=== PATIENT | male | born 1975 | race Caucasian/White ===

== ENCOUNTER 2023-11-15 03:08 | Observation (INO) | payer OTHER, SELFPAY ==
[2023-11-15] VITALS (23 sets, daily range): BP systolic 133–173; BP diastolic 89–120; PULSE 74–111; RESP 16–22; TEMP 36.2–36.7; O2SAT 94–99; BMI 38.0; BMI 38.2
--- NOTE | 2023-11-15 03:17 | ED_ITS ---
HPI - Chest Pain General Time Seen by Provider: 03:17 Date Seen: 11/15/23 Chief Complaint: Chest Pain Stated Complaint: chest pain radiating to left shoulder Time Seen by Provider: 11/15/23 03:18 Source: patient, RN notes reviewed and old records reviewed Mode of arrival: ambulatory Limitations: no limitations History of Present Illness HPI narrative: 40-year-old male with history of bypass and renal transplant who presents today with chest pain. Left-sided chest pain radiating to the left back and shoulder this started several hours ago. Pain is worse with movement, no nausea vomiting, no shortness of breath. Patient takes Eliquis, metoprolol, losartan, as well as Prograf. Patient receives most his medical care in [place]. He is unsure if he is in chronic atrial fibrillation or not. Related Data Home Medications ?Medication ?Instructions ?Recorded ?Confirmed apixaban 5 mg tablet (Eliquis) 5 mg PO BID 11/15/23 11/15/23 atorvastatin 40 mg tablet 40 mg PO HS 11/15/23 11/15/23 ergocalciferol (vitamin D2) 1,250 1,250 mcg PO Q7D 11/15/23 11/15/23 mcg (50,000 unit) capsule folic acid 1 mg tablet 1 mg PO DAILY 11/15/23 11/15/23 losartan 25 mg tablet 25 mg PO DAILY 11/15/23 11/15/23 metoprolol succinate 25 mg 25 mg PO BID 11/15/23 11/15/23 tablet,extended release 24 hr nitroglycerin 0.4 mg sublingual 0.4 mg sublingual Q5M PRN angina 11/15/23 11/15/23 tablet prednisone 5 mg tablet 10 mg PO DAILY 11/15/23 11/15/23 tacrolimus 0.5 mg capsule, 1 - 1.5 mg PO BID 11/15/23 11/15/23 immediate-release trazodone 100 mg tablet 100 mg PO HS PRN insomnia 11/15/23 11/15/23 Allergies Allergy/AdvReac Type Severity Reaction Status Date / Time Penicillins Allergy Unknown Verified 11/15/23 03:26 [facility] Medical History (Updated 11/16/23 @ 11:27 by Fernanda Miller MD) Essential hypertension ?I10 - Essential (primary) hypertension (ICD-10) Hyperlipidemia ?E78.5 - Hyperlipidemia, unspecified (ICD-10) Anticoagulant long-term use ?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 (ICD-10) Atrial fibrillation and flutter ?I48.91 - Unspecified atrial fibrillation (ICD-10) ?I48.92 - Unspecified atrial flutter (ICD-10) Surgical History (Updated 11/15/23 @ 09:23 by Fernanda Miller MD) S/P kidney transplant ?Z94.0 - Kidney transplant status (ICD-10) Status post coronary artery bypass graft ?Z95.1 - Presence of aortocoronary bypass graft (ICD-10) Renal transplant recipient ?Z94.0 - Kidney transplant status (ICD-10) S/P CABG x 4 ?Z95.1 - Presence of aortocoronary bypass graft (ICD-10) Social History (Updated 11/15/23 @ 09:19 by Fernanda Miller MD) Narrative: Lives independently near [place], [place]. 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 Rare alcohol, 1/2 pack per day smoker. Not currently partnered, + adult children. He is unsure who would be his medical decision maker in the event of a medical crisis. He requests DNR/DNI status. What is your current living situation?: I presently have a place to live Problems where you live: no known problems Problems where you live details: na In the past 12 months, utilities in danger of being shut off: no In past 12 months, lack of transportation kept you from medical appts, meetings, work, or getting things needed for daily living: no In the past 12 mos, have been you worried that your food would run out before you had money to buy more?: never true In the past 12 mos, the food you bought just didn't last and you didn't have money to buy more?: never true Smoking Status: Current every day smoker What tobacco products do you use: cigarettes Smoking packs per day: 0.5 Smoking cigarettes per day: 10.0 Years smoked: 20 Smoking pack-years: 10.00 Second hand tobacco smoke exposure: No How often do you have a drink containing alcohol: never How often do you have six or more drinks on one occasion: Never AUDIT-C Alcohol total score: 0 Non-prescribed substance use: denies use How often does anyone, including family, friends and others, physically hurt you : never How often does anyone, including family, friends and others, insult or talk down to you: never How often does anyone, including family, friends and others, threaten you with harm: never How often does anyone, including family, friends and others, scream or curse at you: never service: No Exam Narrative Exam Narrative: General: Well-developed and well-nourished, no acute distress Head: Atraumatic and normocephalic Eyes: Pupils are equal reactive, extraocular motions intact, conjunctiva clear ENT: External nose and ears are normal, posterior pharynx without erythema or exudate Neck: No midline cervical tenderness, full spontaneous range of motion the neck, trachea midline, no adenopathy Heart: Irregular rhythm, borderline tachycardia, 5/6 murmur Lungs: Expiratory wheezes bilaterally Abdomen: Soft, nontender, nondistended with active bowel sounds Musculoskeletal: No tenderness, deformity, or edema Neurologic: Awake, alert, and oriented x3, no gross focal neurologic deficits, cranial nerves intact as tested Psych: Mood and affect are appropriate Skin: No rashes Const Vital Signs, click to edit/add: Vital Signs - 24 hr 11/15/23 03:20 11/15/23 03:35 11/15/23 03:40 Temperature 97.8 F 97.5 F L Pulse Rate [Pulse Oximeter] 111 H 105 H Respiratory Rate 22 20 18 Blood Pressure [Right Forearm] 157/107 H 165/112 H 143/99 H Pulse Oximetry 99 96 97 Oxygen Delivery Method Room Air Room Air Room Air 11/15/23 03:45 11/15/23 04:27 11/15/23 05:25 Temperature Pulse Rate [Pulse Oximeter] 109 H 98 104 H Respiratory Rate 18 18 18 Blood Pressure [Right Forearm] 133/94 H 153/96 H 137/97 H Pulse Oximetry 97 98 98 Oxygen Delivery Method Room Air Room Air Room Air 11/15/23 06:27 Temperature Pulse Rate [Pulse Oximeter] 101 H Respiratory Rate 18 Blood Pressure [Right Forearm] 134/95 H Pulse Oximetry 97 Oxygen Delivery Method Room Air Course Course ED Course: Patient seen and examined, presents with left-sided chest pain radiating left back and shoulder. Patient is in atrial flutter with variable block, he is on Eliquis and has a history of atrial fibrillation flutter but is unsure if this is paroxysmal or chronic. He does have tenderness of the chest and upper back but given significant cardiac history and symptoms today, labs ordered. Patient is anticoagulated, no hypoxia and pain is not pleuritic, pulmonary embolism is clinically unlikely, dissection would be concerned this patient does have a murmur and chest pain radiating into the back but no radiation to the abdomen, he has a heart murmur but says that he has been told this in the past. Chest x- ray ordered initially as patient has a renal transplant it sounds like some renal insufficiency, seen is baseline creatinine is 1.5-1.9 so would like to avoid contrast bolus if possible. Aspirin and nitroglycerin are ordered along with nebulizer treatment. Care impacted by chronic medical problems of renal transplant, coronary disease, atrial fibrillation. Patient does smoke cigarettes. Reevaluation(s) Time of Reevaluation #1: 04:04 Reevaluation #1: Labs independently interpreted by me with normal basic panel including creatinine of 1.5, normal hepatic panel, BNP elevated at 4480. Chest x-ray is pending. Patient received 2 rounds of nitroglycerin with some improvement of his pain each time but pain did return. Chest x-ray is pending. Tylenol ordered for headache Time of Reevaluation #2: 04:11 Reevaluation #2: Chest x-ray independently interpreted by me does not demonstrate mediastinal widening, there is cardiomegaly and the some evidence for fluid overload. With no mediastinal widening, pain improved with nitroglycerin, and slightly elevated troponin, will defer CT scan of the chest for now as patient is anticoagulated and pulmonary embolism is clinically unlikely, aortic dissection possible but also unlikely. Will continue to monitor closely. Time of Reevaluation #3: 04:16 Reevaluation #3: Patient rechecked, still quite uncomfortable. Blood pressure stable, heart rate in the 90s after nebulizer treatment. On further discussion, patient says the pain in his chest is somewhat similar to what he had prior to his bypass. CTA ordered to evaluate for dissection. Additional Reevaluation(s): 4:42 a.m. on recheck, patient is much more comfortable on nitroglycerin drip, heart rate is improving with still in atrial fib/flutter. Given improvement of pain with nitroglycerin and normal appearing aortic knob on chest x-ray, likelihood of acute coronary syndrome is higher than possibility aortic dissection. Given patient's renal transplant status, goal to avoid excessive IV contrast of both CTA and likely angiogram. Clinically symptoms are most consistent with acute coronary syndrome. If repeat troponin is not elevated or patient develops other symptoms, will reconsider ordering CTA, otherwise will continue to monitor, repeat troponin in 1 hour, and likely transfer for further cardiology evaluation. 5:50 a.m. repeat troponin 0.02, this was repeated twice. Patient required a dose of Dilaudid to help with pain management. He is comfortable now. CT scan is ordered to evaluate for other intrathoracic causes of pain. 6:29 a.m. patient recheck, resting comfortably and pain is improved. He has had some urine output after Lasix. Due to flat or down trending troponin, CTA is ordered to evaluate for other causes of pain in the chest. If this is negative, anticipate admission for further evaluation and treatment. 7:[address] scan of the chest abdomen pelvis independently interpreted by me with question of trace left pleural effusion but no acute pulmonary embolism, aortic dissection, or other intrathoracic pathology 7:[address] report, cardiomegaly with atherosclerosis but no acute findings in the chest. 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 Plan for admission versus transfer for continued pain management, further evaluation and treatment. 7:55 a.m. care discussed with Dr. Brody, cardiology at [facility] who recommends stopping heparin drip and admitting at [facility]. Care discussed Dr. Miller, hospitalist for admission. Vital Signs Vital signs: Initial Vital Signs Temperature 97.8 F 11/15/23 03:20 Temperature Source Temporal Artery Scan 11/15/23 03:20 Pulse Rate 111 H 11/15/23 03:20 Pulse Rhythm Irregular 11/15/23 03:20 Respiratory Rate 22 11/15/23 03:20 Blood Pressure 157/107 H 11/15/23 03:20 Blood Pressure Mean 123 H 11/15/23 03:20 Blood Pressure Position Supine 11/15/23 03:20 Pulse Oximetry 99 11/15/23 03:20 Oxygen Delivery Method Room Air 11/15/23 03:20 Vital Signs Temperature 97.8 F 11/15/23 03:20 Pulse Rate 111 H 11/15/23 03:20 Respiratory Rate 22 11/15/23 03:20 Blood Pressure 157/107 H 11/15/23 03:20 Pulse Oximetry 99 11/15/23 03:20 Oxygen Delivery Method Room Air 11/15/23 03:20 Temperature 98.2 F 11/16/23 07:32 Pulse Rate 80 11/16/23 07:32 Respiratory Rate 18 11/16/23 07:32 Blood Pressure 151/101 H 11/16/23 07:32 Pulse Oximetry 98 11/16/23 07:32 Oxygen Delivery Method Room Air 11/16/23 07:32 Medications Administered Medications: Discontinued Medications Generic Name Dose Route Start Last Admin Trade Name Arcadio PRN Reason Stop Dose Admin Acetaminophen 650 mg 11/15/23 04:05 11/15/23 04:27 Acetaminophen 325 Mg Tablet PO 11/15/23 04:06 650 mg ONCE ONE Administration Acetaminophen 650 mg 11/15/23 17:00 11/16/23 08:40 Acetaminophen 325 Mg Tablet PO 650 mg QID MARBIN Administration Albuterol/Ipratropium 1 neb 11/15/23 03:34 11/15/23 03:38 Iprat-Albut 0.5-2.5 Mg/3 Ml Neb IH 11/15/23 03:35 1 neb ONCE ONE Administration Apixaban 5 mg 11/15/23 08:00 11/15/23 08:59 Apixaban 5 Mg Tablet PO 11/15/23 08:01 5 mg ONCE ONE Administration Apixaban 5 mg 11/15/23 21:00 11/16/23 08:40 Apixaban 5 Mg Tablet PO 5 mg BID MARBIN Administration Aspirin 324 mg 11/15/23 03:27 11/15/23 03:34 Aspirin 81 Mg Tab.Chew PO 11/15/23 03:28 324 mg ONCE ONE Administration Atorvastatin Calcium 40 mg 11/15/23 21:00 11/15/23 20:06 Atorvastatin Calcium 40 Mg Tablet PO 40 mg HS MARBIN Administration Cyclobenzaprine HCl 5 mg 11/15/23 16:56 11/16/23 01:23 Cyclobenzaprine Hcl 10 Mg Tablet PO 5 mg TID PRN Administration Folic Acid 1 mg 11/16/23 09:00 11/16/23 08:40 Folic Acid 1 Mg Tablet PO 1 mg DAILY [facility] Administration Furosemide 40 mg 11/15/23 04:44 11/15/23 05:18 Furosemide 10 Mg/Ml Inj IVP 11/15/23 04:45 40 mg ONCE ONE Administration Hydromorphone HCl 0.5 mg 11/15/23 05:28 11/15/23 05:39 Hydromorphone 0.5 Mg/0.5 Ml Inj IVP 11/15/23 05:29 0.5 mg ONCE ONE Administration Hydromorphone HCl 0.2 - 0.5 mg 11/15/23 12:25 11/16/23 02:09 Hydromorphone 0.5 Mg/0.5 Ml Inj IVP 0.5 mg Q1H PRN Administration Pain Nitroglycerin/Dextrose 25,000 mcg in 250 mls @ 3 mls/hr 11/15/23 04:13 11/15/23 09:00 Nitroglycerin/Dextrose IVPB Infused .TITRATE PRN Infusion Chest Pain Protocol 5 MCG/MIN Lidocaine 1 patch 11/16/23 08:15 11/16/23 08:42 Lidocaine 5% Patch TRANSDERMA 1 patch Q24H [facility] Administration Protocol Losartan Potassium 25 mg 11/16/23 09:00 11/16/23 08:39 Losartan Potassium 50 Mg Tablet PO 25 mg DAILY [facility] Administration Menthol 1 applic 11/15/23 17:00 11/16/23 06:04 Menthol 57 Gm Gel TOPICAL Not Given Q6H [facility] Metoprolol Succinate 25 mg 11/15/23 21:00 11/16/23 08:40 Metoprolol Succinate (Xl) 25 Mg Tab PO 25 mg BID [facility] Administration Morphine Sulfate 2 mg 11/15/23 11:09 11/15/23 11:19 Morphine 2 Mg/Ml Inj IVP 2 mg Q2H PRN Administration Nitroglycerin 0.4 mg 11/15/23 03:27 11/15/23 03:46 Nitroglycerin 0.4 Mg Tab.Subl SUBLINGUAL 0.4 mg Q5M PRN Administration Chest Pain Nitroglycerin 0.4 mg 11/15/23 09:20 11/15/23 11:55 Nitroglycerin 0.4 Mg Tab.Subl SUBLINGUAL 0.4 mg Q5M PRN Administration angina Oxycodone HCl 10 mg 11/16/23 02:19 11/16/23 07:30 Oxycodone 5 Mg Tablet PO 10 mg Q4H PRN Administration Severe Pain Prednisone 10 mg 11/16/23 09:00 11/16/23 08:40 Prednisone 5 Mg Tablet PO 10 mg DAILY MARBIN Administration Sodium Chloride 5 ml 11/15/23 21:00 11/16/23 08:44 Sodium Chloride 0.9 % (Flush) 10 Ml Syringe IVF 5 ml BID MARBIN Administration Tacrolimus 1.5 mg 11/15/23 08:30 11/15/23 08:57 Tacrolimus 0.5 Mg Capsule PO 11/15/23 08:31 1.5 mg ONCE ONE Administration Tacrolimus 1 mg 11/15/23 21:00 11/15/23 20:07 Tacrolimus 0.5 Mg Capsule PO 1 mg HS MARBIN Administration Tacrolimus 1.5 mg 11/16/23 09:00 11/16/23 08:40 Tacrolimus 0.5 Mg Capsule PO 1.5 mg DAILY MARBIN Administration MDM - Chest Pain Lab Data Labs: Lab Results 11/15/23 11/15/23 11/15/23 Range/Units 03:16 03:28 04:00 WBC 9.91 (4.50-11.00) K/uL RBC 6.65 H (4.30-5.90) m/uL Hgb 17.8 H (13.5-17.5) gm/dL Hct 55.6 H (37.0-53.0) % MCV 84 (80-100) fL MCH 27 (26-34) pg MCHC 32 (32-36) gm/dL RDW Coeff of Rob 16.0 H (11.5-15.5) % Plt Count 196 (140-440) K/uL Neut % (Auto) 67.6 (42.0-72.0) % Lymph % (Auto) 18.9 L (20-44) % Atlantic % (Auto) 10.7 (0.0-11.0) % Eos % (Auto) 2.1 (0.0-7.0) % Baso % (Auto) 0.4 (0.0-3.0) % Neut # (Auto) 6.70 (1.7-7.0) K/uL Lymph # (Auto) 1.90 (0.90-2.90) K/uL Atlantic # (Auto) 1.10 H (0.00-0.90) K/UL Eos # (Auto) 0.21 (0.00-0.50) K/uL Baso # (Auto) 0.04 (0.00-0.30) K/uL Abs Immat Gran (auto) 0.03 (0.00-0.30) K/uL Imm/Tot Granulo (auto) 0.3 % Sodium 138 (135-149) mmol/L Potassium 4.0 (3.6-5.1) mmol/L Chloride 104 (96-114) mmol/L Carbon Dioxide 27 (20-32) mmol/L Anion Gap 7 (7-15) mEq/L BUN 18 (5-24) mg/dL Creatinine 1.5 (0.5-1.5) mg/dL Estimated Creat Clear 66.10 Estimated GFR 57 ml/min Glucose 95 (60-115) mg/dL Calcium 9.4 (8.4-10.6) mg/dL Magnesium 1.7 (1.5-2.6) mg/dL Total Bilirubin 1.2 (0.1-1.5) mg/dL Direct Bilirubin 0.4 (0.0-0.5) mg/dL AST 22 (12-35) U/L ALT 17 (4-50) U/L Alkaline Phosphatase 86 (40-150) U/L Troponin I (0.01-0.04) ng/mL NT-Pro-B Natriuret Pep 4480 pg/mL Total Protein 7.3 (6.0-8.3) g/dL Albumin 4.5 (3.3-5.0) g/dL Lab Acknowledgement Test Added POC Troponin I 0.14 H (0.01-0.04) ng/ml 11/15/23 11/15/23 Range/Units 05:32 06:20 WBC (4.50-11.00) K/uL RBC (4.30-5.90) m/uL Hgb (13.5-17.5) gm/dL Hct (37.0-53.0) % MCV (80-100) fL MCH (26-34) pg MCHC (32-36) gm/dL RDW Coeff of Rob (11.5-15.5) % Plt Count (140-440) K/uL Neut % (Auto) (42.0-72.0) % Lymph % (Auto) (20-44) % Atlantic % (Auto) (0.0-11.0) % Eos % (Auto) (0.0-7.0) % Baso % (Auto) (0.0-3.0) % Neut # (Auto) (1.7-7.0) K/uL Lymph # (Auto) (0.90-2.90) K/uL Atlantic # (Auto) (0.00-0.90) K/UL Eos # (Auto) (0.00-0.50) K/uL Baso # (Auto) (0.00-0.30) K/uL Abs Immat Gran (auto) (0.00-0.30) K/uL Imm/Tot Granulo (auto) % Sodium (135-149) mmol/L Potassium (3.6-5.1) mmol/L Chloride (96-114) mmol/L Carbon Dioxide (20-32) mmol/L Anion Gap (7-15) mEq/L BUN (5-24) mg/dL Creatinine (0.5-1.5) mg/dL Estimated Creat Clear Estimated GFR ml/min Glucose (60-115) mg/dL Calcium (8.4-10.6) mg/dL Magnesium (1.5-2.6) mg/dL Total Bilirubin (0.1-1.5) mg/dL Direct Bilirubin (0.0-0.5) mg/dL AST (12-35) U/L ALT (4-50) U/L Alkaline Phosphatase (40-150) U/L Troponin I 0.03 (0.01-0.04) ng/mL NT-Pro-B Natriuret Pep pg/mL Total Protein (6.0-8.3) g/dL Albumin (3.3-5.0) g/dL Lab Acknowledgement POC Troponin I 0.02 (0.01-0.04) ng/ml ECG Data Attestation: I personally reviewed and interpreted this ECG as follows: ECG interpretation date: 11/15/23 ECG interpretation time: 03:18 Prior ECG tracings: available for review Interpretation: Performed at 3:15 a.m. demonstrates atrial flutter with variable block, heart rate 101, nonspecific ST changes with no acute ischemic changes, QTC 440, no prior for comparison Discharge Plan Discharge Clinical Impression: S/P kidney transplant, Status post coronary artery bypass graft, Anticoagulant long-term use, Atrial fibrillation and flutter, Smokes cigarettes, Acute CHF, Chest pain Patient Disposition: Admitted As Observation Condition: Improved Activity Level: No strenuous activity Discharge Diet: Heart Healthy (2 gm sodium, low fat)
--- NOTE | 2023-11-15 03:28 | CRLHL7_ITS ---
For Patients: As a result of the Century Cures Act, medical imaging exams and procedure reports are released immediately into your electronic medical record. You may view this report before your referring provider. If you have questions, please contact your health care provider. INDICATION: Chest pain COMPARISON: None TECHNIQUE: Portable AP semi upright examination dated November 15, 2023 at 04:00 FINDINGS: TUBES AND LINES: None. HEART AND MEDIASTINUM: Enlarged heart. Sternotomy. LUNGS AND PLEURAL SPACES: Vascular and interstitial prominence probably representing CHF/pulmonary edema.The pleural spaces are unremarkable. OSSEOUS STRUCTURES: Age-appropriate appearance. No acute focal finding. IMPRESSION: Enlarged heart. Sternotomy. Vascular and interstitial prominence probably representing CHF/pulmonary edema. Dictated by Nicola Oliveira MD @ 11/15/2023 4:25:42 AM (Electronically Signed)
[2023-11-15 03:30] LABS: Troponin, Point-of-Care* 0.14 ng/ml (0.01-0.04)
[2023-11-15] MEDS: ASPIRIN 81 MG TAB.CHEW 324 MG PO (03:34)
[2023-11-15] MEDS: NITROGLYCERIN 0.4 MG TAB.SUBL SUBLINGUAL ×5 (03:35→11:55)
[2023-11-15] MEDS: IPRAT-ALBUT 0.5-2.5 MG/3 ML NEB 1 NEB IH (03:38)
--- OUTSIDE RECORDS SUMMARY | 2023-11-15 03:43 | XMS_ITS | Encounter Summary ---
Author Organization [facility] Address [address] [place] [phone] Phone Care Team Providers Care Ui [employer] Developer Name Role Phone Nestor Gregorio DO Primary Care Provider [phone] Encounter Details Date Type Department Care Team (Late st Contact Info) Description 10/20/2023 Telephone [facility] [address], [address] [place] [address] Rafiq Mckeon LPN Social History Tobacco Use Types Packs/Day Years Used Date Smoking Tobacco: Never Smokeless Tobacco: Never Alcohol Use Standard Drinks/Week Comments Not Currently 0 (1 standard drink = 0.6 oz pur e alcohol) Sex and Gender Information Value Date Recorded Sex Assigned at Not on file Gender Identity Not on file Sexual Orientation Not on file documented as of this encounter Plan of Treatment Upcoming Encounters Date Type Department Care Team (Late st Contact Info) Description 05/31/2024 10:20 AM MST Office Visit [facility] [address], [address] [place] [address] Sayda Nicolas MD [address] [place] [address] documented as of this encounter Visit Diagnoses Not on filedocumented in this encounter Care Teams [employer] Developer Relationship Specialty Start Date End Date Nestor Gregorio DO [id number] [place] [id number] PCP - General Family Medicine 05/08/19 documented as of this encounter
--- OUTSIDE RECORDS SUMMARY | 2023-11-15 03:43 | XMS_ITS | Encounter Summary ---
Author Organization [facility] Address [address] [place] [address] Phone Care Team Providers Care Radiology Therapist Name Role Phone Nestor Gregorio DO Primary Care Provider [phone] Encounter Details Date Type Department Care Team (Late st Contact Info) Description 10/07/2023 Orders Only [facility] [address], [address] [place] [address] Sayda Nicolas MD [address] [address] Social History Tobacco Use Types Packs/Day Years [...] AM MST Office Visit [facility] [address], [address] [place] [address] Sayda Nicolas MD [address] [address] documented as of this encounter Procedures Procedure Name Priority Date/Time Associated Diagnosis Comments PARATHYROID HORMONE (PTH) INTACT Routine 10/07/2023 9:27 AM CDT MICROALBUMIN/CREATIN INE RATIO, TIMED 24 HOUR URINE Routine 10/07/2023 9:27 AM CDT HEPATITIS PANEL (GENERAL) Routine 10/07/2023 9:27 AM CDT HEMOGLOBIN A1C, SERUM Routine 10/07/2023 9:27 AM CDT CBC Routine 10/07/2023 9:27 AM CDT documented in this encounter Results * (ABNORMAL) Microalbumin/Creatinine Ratio, Timed Urine (10/07/2023 9:27 AM CDT) Microalbumin, Urine 177.00 mg/L [facility] Creatinine, Urine 79.7 mg/dL [facility] Microalbumin, Urine 222.1(H) 0.0 - 30.0 mcg/mg [facility] 10/07/2023 9:27 AM CDT Sayda Nicolas MD LAB URINE ORDERABLES [facility] * Hepatitis Panel (General) (10/07/2023 9:27 AM CDT) Hepatitis A virus IgM Ab, Serum 0.14 <=0.79 [facility] Hepatitis A virus IgM Ab, Serum/Plasma NON-REACTI VE NON-REACTI VE [facility] Hepatitis B virus core IgM Ab, Serum/Plasma 0.05 <=0.79 [facility] Hepatitis B virus core IgM Ab, Serum/Plasma NON-REACTI VE Non-reacti ve [facility] Hepatitis B virus surface Ag, Serum 0.21 <=0.99 [facility] Hepatitis B virus surface Ag, Serum/Plasma NON-REACTI VE Non-reacti ve [facility] Hepatitis C virus Ab Signal/Cutoff, Serum/Plasma 0.05 <=0.79 [facility] Hepatitis C virus Ab, Serum NON-REACTI VE Non-reacti ve [facility] 10/07/2023 9:27 AM CDT Sayda Nicolas MD LAB BLOOD ORDERABLES [facility] * (ABNORMAL) CBC (10/07/2023 9:27 AM CDT) Leukocytes, Blood 9.7 4.6 - 12.4 K/cmm [facility] Erythrocytes (RBC) 6.01(H) 3.98 - 5.64 M/cmm [facility] Hemoglobin (HGB) 16.3 12.8 - 17.4 g/dL [facility] Hematocrit (HCT) 50.2(H) 36.6 - 49.4 % [facility] MCV 83.5 80.0 - 100.0 cmic [facility] MCHC 32.6 32.2 - 36.7 g/dL [facility] Erythrocyte Distribution Width (RDW) 16.2(H) 10.5 - 14.1 % [facility] Platelets, Blood 187 150 - 440 K/cmm [facility] Platelet mean volume, Blood 9.6 6.1 - 9.6 fL [facility] Nucleated erythrocytes, Blood 0 0 - 2 /100 [facility] Neutrophils/100 leukocytes, Blood 71 % [facility] Lymphocytes/100 leukocytes, Blood 17 % [facility] Monocytes/100 leukocytes, Blood 9 % [facility] Eosinophils/100 leukocytes, Blood 3 % [facility] Basophils/100 leukocytes, Blood 1 % [facility] Neutrophils, Blood 6.9 1.8 - 9.2 K/cmm [facility] Lymphocytes, Blood 1.6 0.8 - 5.0 K/cmm [facility] Monocytes, Blood 0.9 0.2 - 1.4 K/cmm [facility] Eosinophils, Blood 0.3 0.0 - 0.8 K/cmm [facility] Basophils, Blood 0.1 0.0 - 0.2 K/cmm [facility] 10/07/2023 9:27 AM CDT Sayda Nicolas MD LAB BLOOD ORDERABLES [facility] * (ABNORMAL) Parathyroid Hormone (PTH), Intact (10/07/2023 9:27 AM CDT) PTH, Intact, Serum/Plasma 192.0(H) 7.2 - 111.9 pg/mL [facility] 10/07/2023 9:27 AM CDT Sayda Nicolas MD LAB BLOOD ORDERABLES Performing Organization Address City/State/[facility] Co de Phone Number [facility] * Hemoglobin A1c, Serum (10/07/2023 9:27 AM CDT) Hemoglobin A1c/Hemoglobin, total, Blood 5.1 4.4 - 6.4 % [facility] Glucose mean value, Blood Estimated from glycated hemoglobin 100 mg/dL [facility] 10/07/2023 9:27 AM CDT Sayda Nicolas MD LAB BLOOD ORDERABLES Performing Organization Address City/[facility] Co de Phone Number [facility] documented in this encounter Visit Diagnoses Not on filedocumented in this encounter Care Teams Radiology Therapist Relationship Specialty Start Date End Date Nestor Gregorio DO [address] [address], [place] [address] PCP - General Family Medicine 05/08/19 documented as of this encounter
--- OUTSIDE RECORDS SUMMARY | 2023-11-15 03:43 | XMS_ITS | Encounter Summary ---
Author Organization [facility] Address [address] [address] Phone Care Team Providers Care Switch Operators Supervisor Name Role Phone Nestor Gregorio DO Primary Care Provider [phone] Encounter Details Date Type Department Care Team (Late st Contact Info) Description 11/09/2023 Telephone [facility] [place] [address], [address] [place] [address] Sayda Nicolas MD [address] [address] Social History Tobacco Use Types Packs/Day Years Used Date Smoking Tobacco: Never Smokeless Tobacco: Never Alcohol Use Standard Drinks/Week Comments Not Currently 0 (1 standard drink = 0.6 oz pur e alcohol) Sex and Gender Information Value Date Recorded Sex Assigned at Not on file Gender Identity Not on file Sexual Orientation Not on file documented as of this encounter Miscellaneous Notes * Telephone Encounter - Sayda Nicolas MD - 11/09/2023 3:39 PM CDT Stable labs, FK 7,5 documented in this encounter Plan of Treatment Upcoming Encounters Date Type Department Care Team (Late st Contact Info) Description 05/31/2024 10:20 AM [facility] Office Visit [facility] [address], [address] [place] [address] Sayda Nicolas MD [address] [facility] [address] [place] [address] documented as of this encounter Visit Diagnoses Not on filedocumented in this encounter Care Teams Switch Operators Supervisor Relationship Specialty Start Date End Date Nestor Gregorio DO [address] [address], [place] [address] PCP - General Family Medicine 05/08/19 documented as of this encounter
--- OUTSIDE RECORDS SUMMARY | 2023-11-15 03:43 | XMS_ITS | Encounter Summary ---
Author Organization [facility] Address [address] [place] [address] Phone Care Team Providers Care Ceramic Tiler Name Role Phone Nestor Gregorio DO Primary Care Provider Encounter Details Date Type Department Care Team (Late st Contact Info) Description 11/05/2023 Orders Only [facility] [place] [address], [address] [place] [address] Sayda Nicolas MD [address] [place] [address] Social History Tobacco Use Types Packs/Day Years [...] AM MST Office Visit [facility] [address], [address] [place] [address] Sayda Nicolas MD [address] [address] documented as of this encounter Procedures Procedure Name Priority Date/Time Associated Diagnosis Comments BK VIRUS QN NAAT, PLASMA Routine 11/05/2023 8:04 AM CDT CBC WITH DIFFERENTIAL Routine 11/05/2023 8:04 AM CDT PARATHYROID HORMONE (PTH) INTACT Routine 11/05/2023 8:04 AM CDT TACROLIMUS (FK506), SERUM Routine 11/05/2023 8:04 AM CDT RENAL FUNCTION PANEL (RFP) Routine 11/05/2023 8:04 AM CDT MAGNESIUM, SERUM Routine 11/05/2023 8:04 AM CDT PROTEIN / CREATININE RATIO, URINE Routine 11/05/2023 8:04 AM CDT documented in this encounter Results * BK Virus QN NAAT, Plasma (11/05/2023 8:04 AM CDT) [facility] BK virus DNA (viral load), Serum/Plasma Not Detected IU/mL [facility] BK virus DNA (viral load), Serum/Plasma Not Detected log IU/mL [facility] BK virus DNA, Serum/Plasma Not Detected Not Detected [facility] Comment: INTERPRETIVE INFORMATION: BK Virus by Quantitative NAAT, ?Plasma The quantitative range of this assay is 1.33 - 8.00 log IU/mL (21.5 - 100,000,000 IU/mL) An interpretation of Not Detected does not rule out the presence of inhibitors or BKV DNA concentration below the level of detection of the assay. Care should be taken in the interpretation of any single viral load determination. International standardization has improved comparability of assay results across laboratories, but discrepancies still exist due to commutability issues with the standard. Performed By: [facility] [address] [place] [address] Career Technical Supervisor: Esteban De La Paz MD, PhD CLIA Number: [id number] 11/05/2023 8:04 AM CDT Sayda Nicolas MD LAB BLOOD ORDERABLES Performing Organization Address City/[facility] [[email or web address]] Co de Phone Number [facility] * Tacrolimus (FK506), Serum (11/05/2023 8:04 AM CDT) Pathologist [facility] Tacrolimus (FK506), Blood 7.5 7.0 - 19.0 ng/mL [facility] 11/05/2023 8:04 AM CDT Narrative [facility] - 11/05/2023 2:08 PM CDT Tacrolimus assay performed by chemiluminescence on the [employer] i2000. Sayda Nicolas MD LAB BLOOD ORDERABLES Performing Organization Address [facility] de Phone Number [facility] * (ABNORMAL) Protein / Creatinine Ratio, Urine (11/05/2023 8:04 AM CDT) Pathologist [facility] Protein, Urine 35.0 mg/dL [facility] Creatine, Urine 0.0880 g/dL [facility] Protein/Creatin ine, Urine 398(H) 0 - 199 mg/g [facility] 11/05/2023 8:04 AM CDT Sayda Nicolas MD LAB URINE ORDERABLES Performing Organization Address [facility] de Phone Number [facility] * (ABNORMAL) CBC WITH DIFFERENTIAL (11/05/2023 8:04 AM CDT) [facility] Leukocytes, Blood 7.4 4.6 - 12.4 K/cmm [facility] Erythrocytes (RBC) 6.37(H) 3.98 - 5.64 M/cmm [facility] Hemoglobin (HGB) 17.6(H) 12.8 - 17.4 g/dL [facility] Hematocrit (HCT) 53.8(H) 36.6 - 49.4 % [facility] MCV 84.5 80.0 - 100.0 cmic [facility] MCHC 32.7 32.2 - 36.7 g/dL [facility] Erythrocyte Distribution Width (RDW) 15.2(H) 10.5 - 14.1 % [facility] Platelets, Blood 171 150 - 440 K/cmm [facility] Platelet mean volume, Blood 9.4 6.1 - 9.6 fL [facility] Nucleated erythrocytes, Blood 0 0 - 2 /100 [facility] Segmented neutrophils/100 leukocytes, Blood 71 % [facility] Variant lymphocytes/100 leukocytes, Blood 10 % [facility] Monocytes/100 leukocytes, Blood 17 % [facility] Eosinophils/100 leukocytes, Blood 2 % [facility] Segmented neutrophils, Blood 5.3 1.8 - 9.2 K/cmm [facility] LYMPHOCYTES - ABS (DIFF) 0.7(L) 0.8 - 5.0 K/cmm [facility] Monocytes, Blood 1.3 0.2 - 1.4 K/cmm [facility] Eosinophils, Blood 0.1 0.0 - 0.8 K/cmm [facility] Leukocyte morphology finding, Blood Normal [facility] Platelet morphology finding, Blood Adequate Adequate [facility] Anisocytosis, Blood 1+(A) (none) [facility] 11/05/2023 8:04 AM CDT Sayda Nicolas MD LAB BLOOD ORDERABLES Performing Organization Address City/[facility]/ZIP Co de Phone Number [facility] * (ABNORMAL) Renal Function Panel (RFP) (11/05/2023 8:04 AM CDT) [facility] Glucose, Serum/Plasma 99 70 - 110 mg/dL [facility] Urea nitrogen, Serum/Plasma (BUN) 16 5 - 25 mg/dL [facility] Creatinine, Serum/Plasma 1.70(H) 0.72 - 1.25 mg/dL [facility] Carbon dioxide CO2), total, Serum/Plasma 23 21 - 32 mmol/L [facility] Chloride, Serum/Plasma 105 96 - 112 mmol/L [facility] Sodium, Serum/Plasma 137 135 - 146 mmol/L [facility] Potassium, Serum/Plasma 4.0 3.5 - 5.0 mmol/L [facility] Calcium, Serum/Plasma 9.8 8.5 - 10.7 mg/dL [facility] Phosphate, Serum/Plasma 2.5 2.4 - 4.3 mg/dL [facility] Albumin, Synovial fluid 4.1 3.4 - 4.7 g/dL [facility] eGFR, Serum/Plasma (CKD-EPI) 49(L) >=60 [facility] 11/05/2023 8:04 AM CDT Sayda Nicolas MD LAB BLOOD ORDERABLES [facility] * Magnesium, Serum (11/05/2023 8:04 AM CDT) Magnesium, Serum/Plasma 1.7 1.7 - 2.9 mg/dL [facility] 11/05/2023 8:04 AM CDT Sayda Nicolas MD LAB BLOOD ORDERABLES Performing Organization Address [facility] de Phone Number [facility] * (ABNORMAL) Parathyroid Hormone (PTH), Intact (11/05/2023 8:04 AM CDT) PTH, Intact, Serum/Plasma 161.5(H) 7.2 - 111.9 pg/mL [facility] 11/05/2023 8:04 AM CDT Sayda Nicolas MD LAB BLOOD ORDERABLES Performing Organization Address [facility] de Phone Number [facility] documented in this encounter Visit Diagnoses Not on filedocumented in this encounter Care Teams Ceramic Tiler Relationship Specialty Start Date End Date Nestor Gregorio DO [address] [address], [place] [address] PCP - General Family Medicine 05/08/19 documented as of this encounter
--- OUTSIDE RECORDS SUMMARY | 2023-11-15 03:43 | XMS_ITS | Encounter Summary ---
Author Organization [facility] Address [address] [address] Phone Care Team Providers Care Circulation Assistant Name Role Phone Nestor Gregorio DO Primary Care Provider [phone] Encounter Details Date Type Department Care Team (Late st Contact Info) Description 10/11/2023 Telephone [facility] [place] [address] [employer], [address] [place] [address] Sayda Nicolas MD [address] [place] [address] Social History Tobacco Use Types Packs/Day Years [...] encounter Miscellaneous Notes * Telephone Encounter - Rafiq Mckeon LPN - 10/11/2023 11:13 AM CDT Lab called they will have corrected. Delvin notified of medications and lab recheck. KW * Telephone Encounter - Sayda Nicolas MD - 10/11/2023 8:59 AM CDT Mr Edilberto Conroy completed labs on Wednesday, there were several issues: 1) [facility] ran a hepatitis panel rather than a hepatic function panel, please call them and have them correct that 2) The urine protein david and I would like for him to start losartan 25mg daily 3) The FK is high, was this a 12 hour trough? If so I'd like to lower the tacrolimus to 2mg in am and 1 mg 12 hours later 4) The vitamin D is low, please ask him to start ergocalciferol 50,000 u weekly 5) I would like a repeat lab in 1 week: renal panel and FK with a 12 hour trough 6) Please mail him previsit labs: Renal panel, FK, cbc, fe studies, pth, 25 [place] Vitamin D, hepatic function panel, ua with urine pro/cr, mag Thank you documented in this encounter Plan of Treatment Upcoming Encounters Date Type Department Care Team (Late st Contact Info) Description 05/31/2024 10:20 AM [facility] Office Visit [facility] [address] [facility], [address] [place] [address] Sayda Nicolas MD [address] [facility] [address] [place] [address] documented as of this encounter Visit Diagnoses Not on filedocumented in this encounter Care Teams Circulation Assistant Relationship Specialty Start Date End Date Nestor Gregorio DO [address] [address], [place] [address] PCP - General Family Medicine 05/08/19 documented as of this encounter
--- OUTSIDE RECORDS SUMMARY | 2023-11-15 03:43 | XMS_ITS | Encounter Summary ---
Author Organization [facility] Address [address] [address] Phone Care Team Providers Care Timber Treatment Plant Operator Name Role Phone Nestor Gregorio DO Primary Care Provider [phone] Encounter Details Date Type Department Care Team (Latest Contact Info) Description 10/11/2023 Orders Only [facility] [place] [address], [address] [place] [address] Rafiq Mckeon LPN Mixed hyperlipidemia (Primary Dx); Post-transplant lymphoproliferative disorder (PTLD) ([facility]) Social History Tobacco Use Types Packs/Day Years [...] AM MST Office Visit [facility] [address], [address] [place], [place] [phone] Sayda Nicolas MD [address] [place], [place] [id number] Scheduled Orders Name Type Priority Associated Diagnoses Orde r Schedule HEPATIC FUNCTION PANEL (HFP) Lab Routine Mixed hyperlipidemia Post-transplant lymphoproliferative disorder (PTLD) ([facility]) 1 Occurrences starting 10/11/2023 until 10/10/2024 documented as of this encounter Visit Diagnoses Diagnosis Mixed hyperlipidemia- Primary Post-transplant lymphoproliferative disorder (PTLD) ([facility]-HCC) Post-transplant lymphoproliferative disorder (PTLD) documented in this encounter Care Teams Timber Treatment Plant Operator Relationship Specialty Start Date End Date Nestor Gregorio DO [address] [address], [place] [address] PCP - General Family Medicine 05/08/19 documented as of this encounter
--- OUTSIDE RECORDS SUMMARY | 2023-11-15 03:43 | XMS_ITS | Encounter Summary ---
Author Organization [facility] Address [address] [place] [address] Phone Care Team Providers Care Student Development Specialist Name Role Phone Nestor Gregorio DO Primary Care Provider [phone] Encounter Details Date Type Department Care Team (Late st Contact Info) Description 10/11/2023 Telephone [facility] [place] [address], [address] [place] [address] Rafiq Mckeon LPN Social History Tobacco Use [...] AM MST Office Visit [facility] [address], [address] [place] [address] Sayda Nicolas MD [address] [place] [address] documented as of this encounter Visit Diagnoses Not on filedocumented in this encounter Care Teams Student Development Specialist Relationship Specialty Start Date End Date Nestor Gregorio DO [id number] [place] [address] PCP - General Family Medicine 05/08/19 documented as of this encounter
--- OUTSIDE RECORDS SUMMARY | 2023-11-15 03:43 | XMS_ITS | Encounter Summary ---
Author Organization [facility] Address [address] [place] [address] Phone Care Team Providers Care Water Taxi Operator Name Role Phone Nestor Gregorio DO Primary Care Provider [phone] Encounter Details Date Type Department Care Team (Late st Contact Info) Description 10/20/2023 Orders Only [facility] [place] [address] [facility], [address] [place] [address] Rafiq Mckeon LPN Social History Tobacco Use [...] AM MST Office Visit [facility] [address] [facility], [address] [place] [address] Sayda Nicolas MD [address] [facility] [address] [place] [address] documented as of this encounter Procedures Procedure Name Priority Date/Time Associated Diagnosis Comments TACROLIMUS (FK506), SERUM Routine 10/20/2023 8:17 AM CDT HEPATITIS PANEL (GENERAL) Routine 10/20/2023 8:17 AM CDT CBC Routine 10/20/2023 8:17 AM CDT documented in this encounter Results * Tacrolimus (FK506), Serum (10/20/2023 8:17 AM CDT) Pathologist [facility] Tacrolimus (FK506), Blood 7.6 7.0 - 19.0 ng/mL [facility] 10/20/2023 8:17 AM CDT Narrative [facility] - 10/20/2023 1:14 PM CDT Tacrolimus assay performed by chemiluminescence on the [employer] i2000. Sayda Nicolas MD LAB BLOOD ORDERABLES [facility] * Hepatitis Panel (General) (10/20/2023 8:17 AM CDT) [facility] Hepatitis A virus IgM Ab, Serum 0.13 <=0.79 [facility] Hepatitis A virus IgM Ab, Serum/Plasma NON-REACTI VE NON-REACTI VE [facility] Hepatitis B virus core IgM Ab, Serum/Plasma 0.05 <=0.79 [facility] Hepatitis B virus core IgM Ab, Serum/Plasma NON-REACTI VE Non-reacti ve [facility] Hepatitis B virus surface Ag, Serum 0.16 <=0.99 [facility] Hepatitis B virus surface Ag, Serum/Plasma NON-REACTI VE Non-reacti ve [facility] Hepatitis C virus Ab Signal/Cutoff, Serum/Plasma 0.06 <=0.79 [facility] Hepatitis C virus Ab, Serum NON-REACTI VE Non-reacti ve [facility] 10/20/2023 8:17 AM CDT Sayda Nicolas MD LAB BLOOD ORDERABLES [facility] * (ABNORMAL) CBC (10/20/2023 8:17 AM CDT) Pathologist [facility] Leukocytes, Blood 10.4 4.6 - 12.4 K/cmm [facility] Erythrocytes (RBC) 6.28(H) 3.98 - 5.64 M/cmm [facility] Hemoglobin (HGB) 16.9 12.8 - 17.4 g/dL [facility] Hematocrit (HCT) 52.3(H) 36.6 - 49.4 % [facility] MCV 83.3 80.0 - 100.0 cmic [facility] MCHC 32.4 32.2 - 36.7 g/dL [facility] Erythrocyte Distribution Width (RDW) 15.8(H) 10.5 - 14.1 % [facility] Platelets, Blood 165 150 - 440 K/cmm [facility] Platelet mean volume, Blood 10.3 6.1 - 9.6 fL [facility] Nucleated erythrocytes, Blood 0 0 - 2 /100 [facility] Neutrophils/100 leukocytes, Blood 71 % [facility] Lymphocytes/100 leukocytes, Blood 17 % [facility] Monocytes/100 leukocytes, Blood 9 % [facility] Eosinophils/100 leukocytes, Blood 2 % [facility] Basophils/100 leukocytes, Blood 0 % [facility] Neutrophils, Blood 7.4 1.8 - 9.2 K/cmm [facility] Lymphocytes, Blood 1.8 0.8 - 5.0 K/cmm [facility] Monocytes, Blood 0.9 0.2 - 1.4 K/cmm [facility] Eosinophils, Blood 0.3 0.0 - 0.8 K/cmm [facility] Basophils, Blood 0.0 0.0 - 0.2 K/cmm [facility] 10/20/2023 8:17 AM CDT Sayda Nicolas MD LAB BLOOD ORDERABLES [facility] documented in this encounter Visit Diagnoses Not on filedocumented in this encounter Care Teams Water Taxi Operator Relationship Specialty Start Date End Date Nestor Gregorio DO [address] [address], [place] [address] PCP - General Family Medicine 05/08/19 documented as of this encounter
--- OUTSIDE RECORDS SUMMARY | 2023-11-15 03:43 | XMS_ITS | Encounter Summary ---
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); Hypertensive heart disease; Left ventricular failure, not otherwise specified (CMS-HCC); Chronic kidney disease stage 3 (CMS-HCC); Vitamin D deficiency, not otherwise specified; Secondary hyperparathyroidism of renal origin (CMS-HCC); Iron deficiency anemia, not otherwise specified Social History Tobacco Use Types Packs/Day Years [...] st Contact Info) Description 05/31/2024 10:20 AM [facility] Office Visit [facility] [address], [address] [place], [place] [phone] Sayda Nicolas MD [address] [place] [address] Scheduled Orders Name Type Priority Associated Diagnoses Orde r Schedule CBC (includes Differential/Plat elets) Lab Routine Goodpasture's syndrome ([facility]-HCC) Hypertensive heart disease Left ventricular failure, not otherwise specified (CMS-HCC) Chronic kidney disease stage 3 (CMS-HCC) Vitamin D deficiency, not otherwise specified Secondary hyperparathyroidism of renal origin (CMS-HCC) Iron deficiency anemia, not otherwise specified 1 Occurrences starting 10/11/2023 until 10/10/2024 documented as of this encounter Procedures Procedure Name Priority Date/Time Associated Diagnosis Comments PARATHYROID HORMONE (PTH) INTACT Routine 10/20/2023 8:17 AM CDT Goodpasture's syndrome ([facility]-HCC) Hypertensive heart disease Left ventricular failure, not otherwise specified (CMS-HCC) Chronic kidney disease stage 3 (CMS-HCC) Vitamin D deficiency, not otherwise specified Secondary hyperparathyroidism of renal origin (CMS-HCC) Iron deficiency anemia, not otherwise specified URINALYSIS, COMPLETE, W/ REFLEX TO CULTURE Routine 10/20/2023 8:17 AM CDT Goodpasture's syndrome ([facility]-HCC) Hypertensive heart disease Left ventricular failure, not otherwise specified (CMS-HCC) Chronic kidney disease stage 3 (CMS-HCC) Vitamin D deficiency, not otherwise specified Secondary hyperparathyroidism of renal origin (CMS-HCC) Iron deficiency anemia, not otherwise specified VITAMIN D, 25-HYDROXY, SERUM Routine 10/20/2023 8:17 AM CDT Goodpasture's syndrome ([facility]-HCC) Hypertensive heart disease Left ventricular failure, not otherwise specified (CMS-HCC) Chronic kidney disease stage 3 (CMS-HCC) Vitamin D deficiency, not otherwise specified Secondary hyperparathyroidism of renal origin (CMS-HCC) Iron deficiency anemia, not otherwise specified FERRITIN, SERUM Routine 10/20/2023 8:17 AM CDT Goodpasture's syndrome ([facility]-HCC) Hypertensive heart disease Left ventricular failure, not otherwise specified (CMS-HCC) Chronic kidney disease stage 3 (CMS-HCC) Vitamin D deficiency, not otherwise specified Secondary hyperparathyroidism of renal origin (CMS-HCC) Iron deficiency anemia, not otherwise specified IRON AND TIBC, SERUM Routine 10/20/2023 8:17 AM CDT Goodpasture's syndrome (CMS-HCC) Hypertensive heart disease Left ventricular failure, not otherwise specified (CMS-HCC) Chronic kidney disease stage 3 (CMS-HCC) Vitamin D deficiency, not otherwise specified Secondary hyperparathyroidism of renal origin (CMS-HCC) Iron deficiency anemia, not otherwise specified PROTEIN / CREATININE RATIO, URINE Routine 10/20/2023 8:17 AM CDT Goodpasture's syndrome (CMS-HCC) Hypertensive heart disease Left ventricular failure, not otherwise specified (CMS-HCC) Chronic kidney disease stage 3 (CMS-HCC) Vitamin D deficiency, not otherwise specified Secondary hyperparathyroidism of renal origin (CMS-HCC) Iron deficiency anemia, not otherwise specified TACROLIMUS (FK506), SERUM Routine 10/18/2023 8:16 AM CDT Goodpasture's syndrome (CMS-HCC) Hypertensive heart disease Left ventricular failure, not otherwise specified (CMS-HCC) Chronic kidney disease stage 3 (CMS-HCC) Vitamin D deficiency, not otherwise specified Secondary hyperparathyroidism of renal origin (CMS-HCC) Iron deficiency anemia, not otherwise specified RENAL FUNCTION PANEL (RFP) Routine 10/18/2023 8:16 AM CDT Goodpasture's syndrome ([facility]-HCC) Hypertensive heart disease Left ventricular failure, not otherwise specified (CMS-HCC) Chronic kidney disease stage 3 (CMS-HCC) Vitamin D deficiency, not otherwise specified Secondary hyperparathyroidism of renal origin ([facility]-HCC) Iron deficiency anemia, not otherwise specified documented in this encounter Results * (ABNORMAL) Parathyroid Hormone (PTH), Intact (10/20/2023 8:17 AM CDT) PTH, Intact, Serum/Plasma 231.3(H) 7.2 - 111.9 pg/mL [facility] 10/20/2023 8:17 AM CDT Sayda Nicolas MD LAB BLOOD ORDERABLES [facility] * Iron and TIBC, Serum (10/20/2023 8:17 AM CDT) Transferrin, Serum/Plasma 277 221 - 409 mg/dL [facility] Iron, Serum/Plasma 98 25 - 156 ug/dL [facility] Iron binding capacity, Serum/Plasma 413 297 - 504 ug/dL [facility] Iron saturation, Serum/Plasma 23.7 15.0 - 55.0 % [facility] Blood (Blood, Venous) 10/20/2023 8:17 AM CDT Sayda Nicolas MD LAB BLOOD ORDERABLES Performing Organization Address [facility] de Phone Number [facility] * Ferritin, Serum (10/20/2023 8:17 AM CDT) Ferritin, Serum/Plasma 49 10 - 259 ng/mL [facility] Blood (Blood, Venous) 10/20/2023 8:17 AM CDT Sayda Nicolas MD LAB BLOOD ORDERABLES Performing Organization Address [facility] de Phone Number [facility] * (ABNORMAL) Vitamin D, 25-Hydroxy, Serum (10/20/2023 8:17 AM CDT) Vitamin D+Metabolites, Serum/Plasma 18.9(L) (<10=Defic ient; 10-29=Insu fficient; 30-96=Suff icient) ng/mL [facility] 10/20/2023 8:17 AM CDT Sayda Nicolas MD LAB BLOOD ORDERABLES Performing Organization Address [facility] de Phone Number [facility] * (ABNORMAL) Urinalysis, Complete, w/ Reflex to Culture (10/20/2023 8:17 AM CDT) Color of Stone Yellow [facility] Clarity of Urine Clear [facility] Glucose, Urine Negative Negative [facility] pH of Urine 5.0 5 - 8.5 [facility] Ketones, Urine Negative Negative [facility] Protein, Urine 1+(A) Negative [facility] Bilirubin, total, Urine Negative Negative [facility] Erythrocytes, Body fluid Negative Negative [facility] Urobilinogen, Urine Negative <0.2 - 1.0 [facility] Specific gravity of Urine 1.013 1.005 - 1.030 [facility] Leukocyte esterase, Urine Negative Negative [facility] Nitrite, Urine Negative Negative [facility] Leukocytes, Urine 1 <5 avg/hpf [facility] Erythrocytes, Urine <1 <5 avg/hpf [facility] 10/20/2023 8:17 AM CDT Sayda Nicolas MD LAB BLOOD ORDERABLES Performing Organization Address [facility] Co de Phone Number [facility] * (ABNORMAL) Protein / Creatinine Ratio, Urine (10/20/2023 8:17 AM CDT) Pathologist [facility] Protein, Urine 42.4 mg/dL [facility] Creatine, Urine 0.1022 g/dL [facility] Protein/Creatin ine, Urine 415(H) 0 - 199 mg/g [facility] Urine (Urine, Clean Catch) 10/20/2023 8:17 AM CDT Sayda Nicolas MD LAB URINE ORDERABLES Performing Organization Address [facility] de Phone Number [facility] * Tacrolimus (FK506), Serum (10/18/2023 8:16 AM CDT) Pathologist [facility] Tacrolimus (FK506), Blood 10.6 7.0 - 19.0 ng/mL [facility] Blood (Blood, Venous) 10/18/2023 8:16 AM CDT Narrative [facility] - 10/19/2023 12:28 PM CDT Tacrolimus assay performed by chemiluminescence on the [employer] i2000. Sayda Nicolas MD LAB BLOOD ORDERABLES Performing Organization Address [facility] de Phone Number [facility] * (ABNORMAL) Renal Function Panel (RFP) (10/18/2023 8:16 AM CDT) Pathologist [facility] Glucose, Serum/Plasma 100 70 - 110 mg/dL [facility] Urea nitrogen, Serum/Plasma (BUN) 23 5 - 25 mg/dL [facility] Creatinine, Serum/Plasma 1.62(H) 0.72 - 1.25 mg/dL [facility] Carbon dioxide CO2), total, Serum/Plasma 23 21 - 32 mmol/L [facility] Chloride, Serum/Plasma 105 96 - 112 mmol/L [facility] Sodium, Serum/Plasma 138 135 - 146 mmol/L [facility] Potassium, Serum/Plasma 4.4 3.5 - 5.0 mmol/L [facility] Calcium, Serum/Plasma 9.6 8.5 - 10.7 mg/dL [facility] Phosphate, Serum/Plasma 2.8 2.4 - 4.3 mg/dL [facility] Albumin, Synovial fluid 4.1 3.4 - 4.7 g/dL [facility] eGFR, Serum/Plasma (CKD-EPI) 52(L) >=60 [facility] Blood (Blood, Venous) 10/18/2023 8:16 AM CDT Sayda Nicolas MD LAB BLOOD ORDERABLES [facility] documented in this encounter Visit Diagnoses Diagnosis Goodpasture's syndrome (CMS-HCC)- Primary Goodpasture's syndrome Hypertensive heart disease Left ventricular failure, not otherwise specified (CMS-HCC) Chronic kidney disease stage 3 (CMS-HCC) Vitamin D deficiency, not otherwise specified Secondary hyperparathyroidism of renal origin (CMS-HCC) Secondary hyperparathyroidism of renal origin Iron deficiency anemia, not otherwise specified documented in this encounter Care Teams Recreation Activities Coordinator Relationship Specialty Start Date End Date Nestor Gregorio DO [address] [id number], [place] [id number] PCP - General Family Medicine 05/08/19 documented as of this encounter
--- OUTSIDE RECORDS SUMMARY | 2023-11-15 03:43 | XMS_ITS | Clinical Summary ---
Author Organization [facility] Address [address] [address] Phone Care Team Providers Care [employer] W[employer] Name Role Phone Nestor Gregorio DO Primary Care Provider [phone] Allergies Active Allergy Reactions Criticality Noted Date Comments Penicillin V Potassium 05/08/2019 Penicillins 11/07/2013 Other reaction(s): Unknown Medications Medication Sig Dispensed Refills Start Date End Date Status apixaban (ELIQUIS) 5 MG tablet 1 PO BID 0 04/26/2018 Active atorvastatin (LIPITOR) 40 MG tablet TAKE 1 TABLET BY MOUTH ONCE DAILY AT BEDTIME FOR CHOLESTEROL . APPOINTMENT REQUIRED FOR FUTURE REFILLS 0 04/21/2019 Active sildenafil (VIAGRA) 50 MG tablet Take 50 mg by mouth 05/08/2019 Active metoprolol succinate XL (TOPROL-XL) 100 MG 24 hr tablet Take 1 tablet (100 mg total) by mouth 1 (one) time each day 90 tablet 3 10/20/2022 Active tacrolimus (PROGRAF) 1 MG capsuleIndicatio ns:Goodpasture's syndrome (CMS-HCC),Compli cation of kidney transplant, not otherwise specified Take 2 capsules by mouth twice daily 120 capsule 11 07/14/2023 Active Additional Information Patient taking differently: 1 mgOral 2 times daily, Reported on 09/29/2023 predniSONE (DELTASONE) 5 MG tablet Take 2 tablets by mouth once daily 60 tablet 11 08/17/2023 5 Active traZODone (DESYREL) 100 MG tablet Take 1 tablet (100 mg total) by mouth at night if needed for sleep 30 tablet 5 09/29/2023 5 Active losartan (COZAAR) 25 MG tablet Take 1 tablet (25 mg total) by mouth 1 (one) time each day 30 tablet 11 10/11/2023 5 Active ergocalciferol (VITAMIN D-2) 1.25 MG (19409 UT) capsule Take 1 capsule (50,000 Units total) by mouth 1 (one) time per week 4 capsule 11 10/11/2023 5 Active tacrolimus (PROGRAF) 0.5 MG capsule Take 3 capsules (1.5 mg total) by mouth 1 (one) time each day in the morning AND 2 capsules (1 mg total) 1 (one) time each day in the evening. 150 capsule 11 10/20/2023 5 Active tacrolimus (PROGRAF) 0.5 MG capsule Take 0.5 mg by mouth in the morning and 0.5 mg in the evening. 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 023 Congestive heart failure 06/17/2022 Long-term current use of anticoagulant 3 History of coronary artery bypass grafting 06/08 Acute chest pain 05/28/2022 Arteriovenous fistula of left upper extremity Myocardial infarction 05/28/2022 Peripheral vascular disease 04/27/2018 Mixed hyperlipidemia 04/26/2018 Abnormal result of cardiovascular function study 03/09/2018 Overview: Added automatically from request for surgery [id number] Goodpasture's syndrome 02/02/2018 Left ventricular hypertrophy 02/02/2018 Male hypogonadism 02/02/2018 Persistent atrial fibrillation 02/02/2018 Atrial flutter 01/13/2018 Hypertensive heart disease 01/13/2018 Body mass index 30+ - obesity 01/13/2018 Shortness of breath 01/13/2018 Benign hypertensive heart di sease without congestive heart failure 01/13/2018 Atherosclerotic heart diseas e of [place] coronary artery without angina pectoris 12/14/2017 Disorder of the skin and subcutaneous tissue, un specified 09/13/2017 Obstructive sleep apnea 09/02/2016 Complication of kidney transplant 09/01/2016 Disorder of phosphorus metabolism 09/01/2016 History of renal transplant 02/15/2015 Impotence 02/15/2015 Chronic kidney disease stage 3 11/13/2013 Fatigue 11/13/2013 Hyperuricemia 11/13/2013 Taste sense altered 11/13/2013 Morbid (severe) obesity due to excess calories 0 11/13/2013 Postviral fatigue syndrome 09/25/2013 Secondary polycythemia 10/17/2012 Age-related osteoporosis wit hout current pathological fracture 09/12/2012 Post-transplant lymphoproliferative disorder (PT LD) 12/07/2011 Other secondary hypertension 11/04/2011 Hypersensitivity angiitis 10/24/2011 End stage renal disease 10/24/2008 Encounters Date Type Department Care Team Description 11/09/2023 Telephone [facility] [address] [employer], [address] [place] [address] Sayda Nicolas MD 11/05/2023 Orders Only [facility] [address], [address] [place] [address] aSyda Nicolas MD 10/20/2023 Orders Only [facility] [place] [address], [address] [place] [address] Rafiq Mckeon LPN 10/20/2023 Telephone [facility] [place] [address], [address] [place] [address] Rafiq Mckeon LPN 10/19/2023 Telephone [facility] [place] [address], [address] [place] [address] Sayda Nicolas MD 10/11/2023 Orders Only [facility] [place] [address], [address] [place] [address] Rafiq Mckeon LPN Mixed hyperlipidemia (Primary Dx); Post-transplant lymphoproliferative disorder (PTLD) ([facility]) 10/11/2023 Orders Only [facility] [place] [email or web address], [address] [place] [address] Rafiq Mckeon LPN Goodpasture's syndrome ([facility]) (Primary Dx); Hypertensive heart disease; Left ventricular failure, not otherwise specified ([facility]); Chronic kidney disease stage 3 ([facility]); Vitamin D deficiency, not otherwise specified; Secondary hyperparathyroidism of renal origin ([facility]); Iron deficiency anemia, not otherwise specified 10/11/2023 Telephone [facility] [address] [employer], [address] [place] [address] Rafiq Mckeon LPN 10/11/2023 Telephone [facility] [address] [place], [address] [place] [address] Sayda Nicolas MD 10/07/2023 Orders Only [facility] [address] [employer], [address] [place] [address] Sayda Nicolas MD 09/29/2023 10:20 AM MDT Office Visit [facility] [address] [place], [address] [place] [address] Sayda Nicolas MD Stage 3a chronic kidney disease ([facility]) (Primary Dx); Kidney transplant status; Iron deficiency anemia, not otherwise specified; Renal osteodystrophy; Hyperuricemia; Hypomagnesemia; Urinary tract infectious disease; Proteinuria, not otherwise specified; Vitamin D deficiency, not otherwise specified; Prediabetes 09/29/2023 Telephone [facility] [address] [place], [address] [place] [address] Sayda Nicolas MD 08/17/2023 Refill [facility] [address] [place], [address] [place] [address] Sayda Nicolas MD from Last 3 Months Immunizations Name Administration Dates Next Due Influenza (IM) Preservative Free 02/28/2013,04/15 Influenza TIV (IM) 02/19/2015,02/13/2014 Influenza, Injectable, Quadr ivalent, Preservative Free 06/05/2020,05/08/2019,04/07/2018 Family History Relation Status Comments Mother Social History Tobacco Use Types Packs/Day Years Used Date Smoking Tobacco: Never Smokeless Tobacco: Never Alcohol Use Standard Drinks/Week Comments Not Currently 0 (1 standard drink = 0.6 oz pur e alcohol) Sex and Gender Information Value Date Recorded Sex Assigned at Not on file Gender Identity Not on file Sexual Orientation Not on file Last Filed Vital Signs Vital Sign Reading Time Taken Comments Blood Pressure 139/85 09/29/2023 9:55 AM CDT Pulse 100 09/29/2023 9:55 AM CDT Temperature 35.6 ??C (96 ??F) 04/26/2018 12:01 AM [employer] Respiratory Rate 16 12/14/2017 12:01 AM CDT Oxygen Saturation - - Inhaled Oxygen Concentration - - Weight 138 kg (305 lb) 09/29/2023 9:55 AM CDT Height 182.9 cm (6') 09/29/2023 9:55 AM CDT Body Mass Index 41.37 09/29/2023 9:55 AM CDT Plan of Treatment Upcoming Encounters Date Type Department Care Team (Late st Contact Info) Description 05/31/2024 10:20 AM MST Office Visit [facility] [place] [address] [facility], [address] [place] [address] Sayda Nicolas MD [address] [facility] [address] [place] [address] Health Maintenance Due Date Last Done Comments Pneumococcal PPSV23 Highest Risk Adult (1 of 3 - PCV13) 09/19/1994 Influenza Vaccine (Season Ended) 2024 02/12/2022, 06/05/2020, 05/08/2019, Additional history exists Procedures Procedure Name Priority Date/Time Associated Diagnosis Comments BK VIRUS QN NAAT, PLASMA Routine 11/05/2023 8:04 AM CDT TACROLIMUS (FK506), SERUM Routine 11/05/2023 8:04 AM CDT PROTEIN / CREATININE RATIO, URINE Routine 11/05/2023 8:04 AM CDT CBC WITH DIFFERENTIAL Routine 11/05/2023 8:04 AM CDT RENAL FUNCTION PANEL (RFP) Routine 11/05/2023 8:04 AM CDT MAGNESIUM, SERUM Routine 11/05/2023 8:04 AM CDT PARATHYROID HORMONE (PTH) INTACT Routine 11/05/2023 8:04 AM CDT TACROLIMUS (FK506), SERUM Routine 10/20/2023 8:17 AM CDT HEPATITIS PANEL (GENERAL) Routine 10/20/2023 8:17 AM CDT CBC Routine 10/20/2023 8:17 AM CDT PARATHYROID HORMONE (PTH) INTACT Routine 10/20/2023 8:17 [...] otherwise specified RENAL FUNCTION PANEL (RFP) Routine 10/20/2023 8:17 AM CDT Stage 3a chronic kidney disease (CMS-HCC) Kidney transplant status TACROLIMUS (FK506), SERUM Routine 10/18/2023 8:16 AM [...] (CMS-HCC) Iron deficiency anemia, not otherwise specified MICROALBUMIN/CREATI NINE RATIO, TIMED 24 HOUR URINE Routine 10/07/2023 9:27 AM CDT HEPATITIS PANEL (GENERAL) Routine 10/07/2023 9:27 AM CDT CBC Routine 10/07/2023 9:27 AM CDT PARATHYROID HORMONE (PTH) INTACT Routine 10/07/2023 9:27 AM CDT HEMOGLOBIN A1C, SERUM Routine 10/07/2023 9:27 AM CDT THYROID STIMULATING HORMONE (TSH), SERUM Routine 10/07/2023 9:27 AM CDT Stage 3a chronic kidney disease (CMS-HCC) Kidney transplant status TACROLIMUS (FK506), SERUM Routine 10/07/2023 9:27 AM CDT Stage 3a chronic kidney disease (CMS-HCC) Kidney transplant status MAGNESIUM, SERUM Routine 10/07/2023 9:27 AM CDT Stage 3a chronic kidney disease (CMS-HCC) Kidney transplant status Hypomagnesemia HEPATIC FUNCTION PANEL (HFP) Routine 10/07/2023 9:27 AM CDT Stage 3a chronic kidney disease (CMS-HCC) Kidney transplant status VITAMIN D, 25-HYDROXY, SERUM Routine 10/07/2023 9:27 AM CDT Stage 3a chronic kidney disease (CMS-HCC) Kidney transplant status Vitamin D deficiency, not otherwise specified PROTEIN / CREATININE RATIO, URINE Routine 10/07/2023 9:27 AM CDT Stage 3a chronic kidney disease (CMS-HCC) Kidney transplant status Proteinuria, not otherwise specified URINALYSIS, COMPLETE, W/ REFLEX TO CULTURE Routine 10/07/2023 9:27 AM CDT Stage 3a chronic kidney disease (CMS-HCC) Kidney transplant status Urinary tract infectious disease URIC ACID, SERUM Routine 10/07/2023 9:27 AM CDT Stage 3a chronic kidney disease (CMS-HCC) Kidney transplant status Hyperuricemia FERRITIN, SERUM Routine 10/07/2023 9:27 AM CDT Stage 3a chronic kidney disease ([facility]) Kidney transplant status Iron deficiency anemia, not otherwise specified IRON AND TIBC, SERUM Routine 10/07/2023 9:27 AM CDT Stage 3a chronic kidney disease ([facility]) Kidney transplant status Iron deficiency anemia, not otherwise specified RENAL FUNCTION PANEL (RFP) Routine 10/07/2023 9:27 AM CDT Stage 3a chronic kidney disease (CMS-HCC) Kidney transplant status TACROLIMUS (FK506), SERUM Routine 09/29/2023 8:08 AM CDT Stage 3a chronic kidney disease ([facility]) Kidney transplant status from Last 3 Months Results * BK Virus QN NAAT, Plasma (11/05/2023 8:04 AM CDT) Pathologist [facility] [place] BK virus DNA (viral load), Serum/Plasma Not Detected IU/mL [facility] BK virus DNA (viral load), Serum/Plasma Not Detected log IU/mL [facility] BK virus DNA, Serum/Plasma Not Detected Not Detected [facility] Comment: INTERPRETIVE INFORMATION: BK Virus by Quantitative [...] commutability issues with the standard. Performed By: [facility] [address] [place] [id number] Mechanical Engineering Officer: Esteban De La Paz MD, PhD CLIA Number: [id number] 11/05/2023 8:04 AM CDT Sayda Nicolas MD LAB BLOOD ORDERABLES [facility] * (ABNORMAL) CBC WITH DIFFERENTIAL (11/05/2023 8:04 AM CDT) Leukocytes, Blood 7.4 4.6 - 12.4 K/cmm [facility] Erythrocytes (RBC) 6.37(H) 3.98 - 5.64 M/cmm [facility] Hemoglobin (HGB) 17.6(H) 12.8 - 17.4 g/dL [facility] Hematocrit (HCT) 53.8(H) 36.6 - 49.4 % [facility] MCV 84.5 80.0 - 100.0 cmic [facility] MCHC 32.7 32.2 - 36.7 g/dL [facility] Erythrocyte Distribution Width (RDW) 15.2(H) 10.5 - 14.1 % [facility] Platelets, Blood 171 150 - 440 K/cmm [facility] Platelet mean volume, Blood 9.4 6.1 - 9.6 fL [facility] Nucleated erythrocytes, Blood 0 0 - 2 /100 [facility] Segmented neutrophils/100 leukocytes, Blood 71 % [facility] Variant lymphocytes/100 leukocytes, Blood 10 % [facility] Monocytes/100 leukocytes, Blood 17 % [facility] Eosinophils/100 leukocytes, Blood 2 % [facility] Segmented neutrophils, Blood 5.3 1.8 - 9.2 K/cmm [facility] LYMPHOCYTES - ABS (DIFF) 0.7(L) 0.8 - 5.0 K/cmm [facility] Monocytes, Blood 1.3 0.2 - 1.4 K/cmm [facility] Eosinophils, Blood 0.1 0.0 - 0.8 K/cmm [facility] Leukocyte morphology finding, Blood Normal [facility] Platelet morphology finding, Blood Adequate Adequate [facility] Anisocytosis, Blood 1+(A) (none) [facility] 11/05/2023 8:04 AM CDT Sayda Nicolas MD LAB BLOOD ORDERABLES [facility] * (ABNORMAL) Parathyroid Hormone (PTH), Intact (11/05/2023 8:04 AM CDT) Only the most recent of3 resultswithin the time period is included. Pathologist [facility] [place] PTH, Intact, Serum/Plasma 161.5(H) 7.2 - 111.9 pg/mL [facility] 11/05/2023 8:04 AM CDT Sayda Nicolas MD LAB BLOOD ORDERABLES Performing Organization Address [facility] Co de Phone Number [facility] * Tacrolimus (FK506), Serum (11/05/2023 8:04 AM CDT) Only the most recent of5 resultswithin the time period is included. Pathologist [facility] [place] Tacrolimus (FK506), Blood 7.5 7.0 - 19.0 ng/mL [facility] 11/05/2023 8:04 AM CDT Narrative [facility] - 11/05/2023 2:08 PM CDT Tacrolimus assay performed by chemiluminescence on the [employer] i2000. Sayda Nicolas MD LAB BLOOD ORDERABLES Performing Organization Address [facility] de Phone Number [facility] * (ABNORMAL) Renal Function Panel (RFP) (11/05/2023 8:04 AM CDT) Only the most recent of4 resultswithin the time period is included. [facility] Glucose, Serum/Plasma 99 70 - 110 mg/dL [facility] Urea nitrogen, Serum/Plasma (BUN) 16 5 - 25 mg/dL [facility] Creatinine, Serum/Plasma 1.70(H) 0.72 - 1.25 mg/dL [facility] Carbon dioxide CO2), total, Serum/Plasma 23 21 - 32 mmol/L [facility] Chloride, Serum/Plasma 105 96 - 112 mmol/L [facility] Sodium, Serum/Plasma 137 135 - 146 mmol/L [facility] Potassium, Serum/Plasma 4.0 3.5 - 5.0 mmol/L [facility] Calcium, Serum/Plasma 9.8 8.5 - 10.7 mg/dL [facility] Phosphate, Serum/Plasma 2.5 2.4 - 4.3 mg/dL [facility] Albumin, Synovial fluid 4.1 3.4 - 4.7 g/dL [facility] eGFR, Serum/Plasma (CKD-EPI) 49(L) >=60 [facility] 11/05/2023 8:04 AM CDT Sayda Nicolas MD LAB BLOOD ORDERABLES Performing Organization Address [facility] de Phone Number [facility] * Magnesium, Serum (11/05/2023 8:04 AM CDT) Only the most recent of2 resultswithin the time period is included. Magnesium, Serum/Plasma 1.7 1.7 - 2.9 mg/dL [facility] 11/05/2023 8:04 AM CDT Sayda Nicolas MD LAB BLOOD ORDERABLES Performing Organization Address [facility] de Phone Number [facility] * (ABNORMAL) Protein / Creatinine Ratio, Urine (11/05/2023 8:04 AM CDT) Only the most recent of3 resultswithin the time period is included. Protein, Urine 35.0 mg/dL [facility] Creatine, Urine 0.0880 g/dL [facility] Protein/Creatin ine, Urine 398(H) 0 - 199 mg/g [facility] 11/05/2023 8:04 AM CDT Sayda Nicolas MD LAB URINE ORDERABLES Performing Organization Address [facility] Phone Number [facility] * (ABNORMAL) Urinalysis, Complete, w/ Reflex to Culture (10/20/2023 8:17 AM CDT) Only the most recent of2 resultswithin the time period is included. Color of Stone Yellow [facility] Clarity of Urine Clear [facility] [...] gravity of Urine 1.013 1.005 - 1.030 [facility] Leukocyte esterase, Urine Negative Negative [facility] Nitrite, Urine Negative Negative [facility] Leukocytes, Urine 1 <5 avg/hpf [facility] Erythrocytes, Urine <1 <5 avg/hpf [facility] 10/20/2023 8:17 AM CDT Sayda Nicolas MD LAB BLOOD ORDERABLES Performing Organization Address [facility] de Phone Number [facility] * (ABNORMAL) Vitamin D, 25-Hydroxy, Serum (10/20/2023 8:17 AM CDT) Only the most recent of2 resultswithin the time period is included. Vitamin D+Metabolites, Serum/Plasma 18.9(L) (<10=Defic ient; 10-29=Insu fficient; 30-96=Suff icient) ng/mL [facility] 10/20/2023 8:17 AM CDT Sayda Nicolas MD LAB BLOOD ORDERABLES Performing Organization Address [facility] Phone Number [facility] * Hepatitis Panel (General) (10/20/2023 8:17 AM CDT) Only the most recent of2 resultswithin the time period is included. Pathologist [facility] [place] Hepatitis A virus IgM Ab, Serum 0.13 <=0.79 [facility] Hepatitis A virus IgM Ab, Serum/Plasma NON-REACTI VE NON-REACTI VE [facility] Hepatitis B virus core IgM Ab, Serum/Plasma 0.05 <=0.79 [facility] Hepatitis B virus core IgM Ab, Serum/Plasma NON-REACTI VE Non-reacti ve [facility] Hepatitis B virus surface Ag, Serum 0.16 <=0.99 [facility] Hepatitis B virus surface Ag, Serum/Plasma NON-REACTI VE Non-reacti ve [facility] Hepatitis C virus Ab Signal/Cutoff, Serum/Plasma 0.06 <=0.79 [facility] Hepatitis C virus Ab, Serum NON-REACTI VE Non-reacti ve [facility] 10/20/2023 8:17 AM CDT Sayda Nicolas MD LAB BLOOD ORDERABLES Performing Organization Address [facility] de Phone Number [facility] * Ferritin, Serum (10/20/2023 8:17 AM CDT) Only the most recent of2 resultswithin the time period is included. Ferritin, Serum/Plasma 49 10 - 259 ng/mL [facility] Blood (Blood, Venous) 10/20/2023 8:17 AM CDT Sayda Nicolas MD LAB BLOOD ORDERABLES Performing Organization Address [facility] de Phone Number [facility] * Iron and TIBC, Serum (10/20/2023 8:17 AM CDT) Only the most recent of2 resultswithin the time period is included. Transferrin, Serum/Plasma 277 221 - 409 mg/dL [facility] Iron, Serum/Plasma 98 25 - 156 ug/dL [facility] Iron binding capacity, Serum/Plasma 413 297 - 504 ug/dL [facility] Iron saturation, Serum/Plasma 23.7 15.0 - 55.0 % [facility] Blood (Blood, Venous) 10/20/2023 8:17 AM CDT Sayda Nicolas MD LAB BLOOD ORDERABLES Performing Organization Address [facility] de Phone Number [facility] * (ABNORMAL) CBC (10/20/2023 8:17 AM CDT) Only the most recent of2 resultswithin the time period is included. Leukocytes, Blood 10.4 4.6 - 12.4 K/cmm [facility] Erythrocytes (RBC) 6.28(H) 3.98 - 5.64 M/cmm [facility] Hemoglobin (HGB) 16.9 12.8 - 17.4 g/dL [facility] Hematocrit (HCT) 52.3(H) 36.6 - 49.4 % [facility] MCV 83.3 80.0 - 100.0 cmic [facility] MCHC 32.4 32.2 - 36.7 g/dL [facility] Erythrocyte Distribution Width (RDW) 15.8(H) 10.5 - 14.1 % [facility] Platelets, Blood 165 150 - 440 K/cmm [facility] Platelet mean volume, Blood 10.3 6.1 - 9.6 fL [facility] Nucleated erythrocytes, Blood 0 0 - 2 /100 [facility] Neutrophils/100 leukocytes, Blood 71 % [facility] Lymphocytes/100 leukocytes, Blood 17 % [facility] Monocytes/100 leukocytes, Blood 9 % [facility] Eosinophils/100 leukocytes, Blood 2 % [facility] Basophils/100 leukocytes, Blood 0 % [facility] Neutrophils, Blood 7.4 1.8 - 9.2 K/cmm [facility] Lymphocytes, Blood 1.8 0.8 - 5.0 K/cmm [facility] Monocytes, Blood 0.9 0.2 - 1.4 K/cmm [facility] Eosinophils, Blood 0.3 0.0 - 0.8 K/cmm [facility] Basophils, Blood 0.0 0.0 - 0.2 K/cmm [facility] 10/20/2023 8:17 AM CDT Sayda Nicolas MD LAB BLOOD ORDERABLES Performing Organization Address [facility] Co de Phone Number [facility] * (ABNORMAL) *Hepatic Function Panel (HFP) (10/07/2023 9:27 AM CDT) Albumin, Synovial fluid 3.8 3.4 - 4.7 g/dL [facility] Protein, Serum/Plasma 5.9(L) 6.2 - 8.2 g/dL [facility] Bilirubin, total, Serum/Plasma 0.8 0.1 - 1.2 mg/dL [facility] Alkaline phosphatase, Serum/Plasma 76 39 - 139 U/L [facility] Aspartate Aminotransferase (AST), Serum/Plasma 14 8 - 42 U/L [facility] Alanine Aminotransferase (ALT), Serum/Plasma 13 7 - 40 U/L [facility] Bilirubin, conjugated, Serum/Plasma 0.2(L) 0.3 - 0.9 mg/dL [facility] Blood (Blood, Venous) 10/07/2023 9:27 AM CDT Sayda Nicolas MD LAB BLOOD ORDERABLES Performing Organization Address [facility]/ZIP Co de Phone Number [facility] * (ABNORMAL) Microalbumin/Creatinine Ratio, Timed Urine (10/07/2023 9:27 AM CDT) Microalbumin, Urine 177.00 mg/L [facility] Creatinine, Urine 79.7 mg/dL [facility] Microalbumin, Urine 222.1(H) 0.0 - 30.0 mcg/mg [facility] 10/07/2023 9:27 AM CDT Sayda Nicolas MD LAB URINE ORDERABLES Performing Organization Address [facility] Phone Number [facility] * Uric Acid, Serum (10/07/2023 9:27 AM CDT) Urate, Serum/Plasma 8.6 3.0 - 9.2 mg/dL [facility] Blood 10/07/2023 9:27 AM CDT Sayda Nicolas MD LAB BLOOD ORDERABLES Performing Organization Address [facility] Phone Number [facility] * Thyroid Stimulating Hormone (TSH), Serum (10/07/2023 9:27 AM CDT) TSH, Serum/Plasma 1.90 0.35 - 5.00 uIU/mL [facility] Blood (Blood, Venous) 10/07/2023 9:27 AM CDT Sayda Nicolas MD LAB BLOOD ORDERABLES Performing Organization Address [facility] Phone Number [facility] * Hemoglobin A1c, Serum (10/07/2023 9:27 AM CDT) Hemoglobin A1c/Hemoglobin, total, Blood 5.1 4.4 - 6.4 % [facility] Glucose mean value, Blood Estimated from glycated hemoglobin 100 mg/dL [facility] 10/07/2023 9:27 AM CDT Sayda Nicolas MD LAB BLOOD ORDERABLES Performing Organization Address [facility] Phone Number [facility] [facility] from Last 3 Months Care Teams Fish And Wildlife Warden Relationship Specialty Start Date End Date Nestor Gregorio DO [address] [address], [place] [address] PCP - General Family Medicine 05/08/19
--- OUTSIDE RECORDS SUMMARY | 2023-11-15 03:43 | XMS_ITS | Data Portability ---
Author Organization [facility], [facility], [facility] Address [address] [place] [address] Assessment No assessment recorded. Plan of Treatment Reminders Order Date Submit Date Provider Last Modified By Organization Details Last Modified Time Details Appointments None recorded. Lab None recorded. Referral None recorded. Procedures None recorded. Surgeries None recorded. Imaging None recorded. Medication Orders Zithromax Z-Jameel 250 mg tablet 2014 015 [email or web address] [facility] [address] [place], [address], 5 21:02:00 prednisone 50 mg tablet 2014 015 [email or web address] [facility] [address] [place], [address], 5 21:02:00 Patient TargetsNo targets recorded. Patient Instructions Encounter Date Encounter Id Patient Instructions Last Modified By Organization Details Last Modified Time 09/04/2014 [id number] strep throat: ca re instructions Not available 09/05/2014 10:21:59 Pt given the following instructions: 1. Take full course of antibiotics with food, finish the entire course even if you start to feel better - upset stomach and diarrhea may occur, if rash develops stop medication and call AUC 2. Take cpan-ewx-vvaqstj probiotic like 4X or Align or eat yogurt to replenish good bacteria and prevent development of diarrhea while on antibiotic 3. Take Ibuprofen alternated with acetaminophen every three hours as needed for sore throat and body aches 4. Rest and sleep if possible to help speed recovery 5. Drink plenty of clear, non-caffeinated fluids such as herbal tea, water, Gatorade, Pedialyte, and broth 6. Use Cepacol or other throat lozenge with menthol??for symptomatic relief of sore throat 7. Salt water gargles and saline nasal rinse for symptomatic relief of congestion and sore throat 8. If not feeling better in 3-4 days, or feeling worse, please call or come in [email or web address] Not available 09/04/2014 21:02:00 Reason for Referral None Reported. Problems Name Status Onset Date Resolution Date Notes Provider Name and Address Organization Details Recorded Time Streptococcal sore throat Active [facility] 09/04/2014 21:02:00 Acute otitis media Active [facility] 09/04/2014 21:02:00 Problem Notes None recorded. Procedures Surgical History Date Name Laterality Status Provider Name and Address Organization Details Recorded Time 1 Anesth kidney transplant completed Former[facility] 09/04/2014 20:35:14 Imaging Results None recorded. Procedure Notes None recorded. Medical Equipment None Reported. Allergies Allergen ID Allergen Name Allergen Category Reaction Reaction Severity Criticality Documentation Date Start Date Code Code System Note Provider Name and Address Organization Details Recorded Time 83172 Medicinal product containin g penicilli n and acting as antibacte rial agent (product) medicatio n Not available Not available Not available 09/04/2014 31628 05 SNOMED [facility] 5 20:35:14 Medications Name Sig Start Date Stop Date Status Note LastModified by Organization Details LastModified Time Zithromax Z-Jameel 250 mg tablet Take 2 tablets (500 mg) by oral route once daily for 1 day then 1 tablet (250 mg) by oral route once daily for 4 days (with food) 2014 active Not Available Not Available Not Avai lable prednisone 50 mg tablet Take 1 tablet every day by oral route for 5 days. 2014 active Not Available Not Available Not Avai lable folic acid active Not Available Not Av ailable Not Available tacrolimus active Not Available Not Av ailable Not Available prednisone active Not Available Not Av ailable Not Available losartan active Not Available Not Avai lable Not Available pantoprazole active Not Available Not Available Not Available B12 active Not Available Not Availa ble Not Available metoprolol ralph-hydrochloro thiaz active Not Available Not Available Not Available Vitals Date Recorded Respiratory rate Oxygen saturation Oxygen saturation in Arterial blood by Pulse oximetry Body weight Body temperature Heart rate Body mass index (BMI) Body height Systolic blood pressure Diastolic blood pressure Provider Name and Address Organization Details Last Updated DateTime 5 14 /min 98 % 98 % 817193. 1688 g 98.4 [degF] 99 /min 32.5 kg/m2 182.88 cm 150 mm[Hg] 92 mm[Hg] [facility] 5 20:35:14 Social History Question Answer Notes LastModified by Organizat ion Details LastModified Time Tobacco Smoking Status Never Smoker [facility] 09/04/2014 20:35:14 What Is Your Level Of Alcohol Consumption? Occasional Information not available 09/04/2014 Which Illicit Or Recreational Drugs Have You Used? None Information not available 09/04/2014 Sex: Male Functional Status None recorded. Mental Status None recorded. Family History Nothing Reported. Medical History Condition Response Coronary Artery Disease N Gout N Kidney Stones N Blood Diseases N Hyperthyroidism N Emphysema N COPD N Depression N Hypothyroidism N Developmental or Behavioral Disorders N Eczema, Hives or other skin conditions N Anxiety Disorder N Muscle, Joint, or Bone Problems N Vision or Eye Problems N Arthritis N Congenital Anomalies N Cancer N Stroke N Bladder or Kidney Problems N High Cholesterol N Liver Disease N Fibromyalgia N Kidney Disease Y Heart Problems N Ear or Hearing Problems N Fatigue N ADD or ADHD N Thyroid Problems N Skin Problems N Anemia N Constipation N Diabetes N Seizures/Epilepsy N Tuberculosis N Chronic Pain N Diverticulitis N Asthma N Allergies N Sleep Disorder N GERD/Reflux N Heart Disease N Pulmonary Embolism N Hypertension Y Osteoporosis N Chicken Pox N Past Encounters Encounter ID Performer Location Encounter Start Date Encounter Closed Date Diagnosis/Indication Diagnosis SNOMED-CT Code [id number] Chary Robledo [facility] [address] [place] [address] 09/04/2014 19:58:15 09/04/2014 21:02:54 Streptococcal sore throat [id number] Acute otitis media 59160 03 Health Concerns Section Related Observation LastModified by Organization Detai ls LastModified Time None Recorded Concern Status LastModified by Organization Details LastModified Time None Recorded Advance Directives Directive None Recorded Payers Encounter Date Sequence Insurance Name Policy Number Policy Monroy Covered Member ID Monroy Member ID Guarantor Name 09/04/2014 1 MEDICARE B-CO: [employer] Delvin Sharma Self [id number] Delvin Self Notes Date Note Type Note Provider Name and Address Organization Details Recorded Time 09/04/2014 text/html HPI Notes: Throa t Pain Reported by patient. Location: bilateral Quality: Cannot identify Severity: moderate Duration: x1 wk Associated Symptoms: no stress; no choking; no globus sensation; no dysphagia; no burping; no neck/shoulder muscle tension; no weight loss; no loss of appetite; no fever; coughing with moderate sputum; throat tickle/itch; odynophagia; hoarseness Notes: Pt reports sore throat x1 wk, sts it only hurts when he swallows and he is losing his voice Neisha mchugh [place] [facility] 09/04/2014 21:02:05
--- OUTSIDE RECORDS SUMMARY | 2023-11-15 03:43 | XMS_ITS | Encounter Summary ---
Author Organization [facility] Address [address], [place] [address] Phone Care Team Providers Care Pharmacy Informaticist Name Role Phone Nestor Gregorio DO Primary Care Provider [phone] Encounter Details Date Type Department Care Team (Late st Contact Info) Description 10/19/2023 Telephone [facility] [address], [address] [place] [address] Sayda Nicolas MD [address] [place] [address] Social History Tobacco Use Types Packs/Day Years [...] Telephone Encounter - Rafiq Mckeon LPN - 10/20/2023 10:33 AM CDT He was on 2 am 1 pm so advised to do 1.5 mg am and 1.0 mg pm will send 0.5 mg to pharmacy to get then recheck labs. KW * Telephone Encounter - Sayda Nicolas MD - 10/19/2023 12:48 PM CDT Rafiq, the repeat FK is still elevated. Could you please check if Mr Self reduced the dose to 2mg in am and 1 mg in pm? If he did please ask him to lower to 1.5mg in am and 1 mg I the pm with a repeat renal panel and FKin 1 week Also there is an old note indicating he is taking 1mg q 12, so please verify the dose Thank you documented in this encounter Plan of Treatment Upcoming Encounters Date Type Department Care Team (Late st Contact Info) Description 05/31/2024 10:20 AM [facility] Office Visit [facility] [address] [facility], [address] [place], [place] [id number] Sayda Nicolas MD [address] [facility] [address] [place] [address] documented as of this encounter Visit Diagnoses Not on filedocumented in this encounter Care Teams Pharmacy Informaticist Relationship Specialty Start Date End Date Nestor Gregorio DO [address] [address], [place] [address] PCP - General Family Medicine 05/08/19 documented as of this encounter
--- OUTSIDE RECORDS SUMMARY | 2023-11-15 03:43 | XMS_ITS | Encounter Summary ---
Author Organization [facility] Address [address] [address] Phone Care Team Providers Care Abrasive Sawyer Name Role Phone Nestor Gregorio DO Primary Care Provider [phone] Encounter Details Date Type Department Care Team (Late st Contact Info) Description 09/29/2023 Telephone [facility] [place] [id number], [facility] [address] [place] [address] Sayda Nicolas MD [address] [address] Social History Tobacco Use Types Packs/Day Years [...] Telephone Encounter - Sayda Nicolas MD - 09/29/2023 3:05 PM CDT Kisha, please let Mr Edilberto know his labs indicate stable kidney function and a therapeutic prograf level He should recheck labs in 1 week following the med change today and has that order Thank you documented in this encounter Plan of Treatment Upcoming Encounters Date Type Department Care Team (Late st Contact Info) Description 05/31/2024 10:20 AM [facility] Office Visit [facility] [address], [address] [place] [address] Sayda Nicolas MD [address] [place] [address] documented as of this encounter Visit Diagnoses Not on filedocumented in this encounter Care Teams Abrasive Sawyer Relationship Specialty Start Date End Date Nestor Gregorio DO [address] [address], [place] [address] PCP - General Family Medicine 05/08/19 documented as of this encounter
--- OUTSIDE RECORDS SUMMARY | 2023-11-15 03:44 | XMS_ITS ---
Author Organization [facility] Address [address] [place] [address] Care Team Providers Care Wine Consultant Name Role Phone Unavailable Unavailable Unavailable Surgery Details Not on file Complications Check Surgery Details section. Procedure Estimated Blood Loss Check Surgery Details section. Procedure Findings Check Surgery Details section. Procedure Specimens Taken Check Surgery Details section.
--- OUTSIDE RECORDS SUMMARY | 2023-11-15 03:44 | XMS_ITS | Encounter Summary ---
Author Organization [facility] Address [address] [place] [address] Phone Care Team Providers Care Conveyor Belt Installer Name Role Phone Nestor Gregorio DO Primary Care Provider [phone] Reason for Visit * Reason Comments Med Refill Encounter Details Date Type Department Care Team (Late Contact Info) Description 05/10/2020 Refill [facility] [address], [address] [place] [address] Sayda Nicolas MD [address] [place] [address] Social History Tobacco Use Types Packs/Day Years [...] Encounters Date Type Department Care Team (Late Contact Info) Description 05/31/2024 10:20 AM [facility] Office Visit [facility] [address], [address] [place] [address] Sayda Nicolas MD [address] [place] [address] documented as of this encounter Visit Diagnoses Not on filedocumented in this encounter Care Teams Conveyor Belt Installer Relationship Specialty Start Date End Date Nestor Gregorio DO [address] [address], [place] [address] PCP - General Family Medicine 05/08/19 documented as of this encounter
--- OUTSIDE RECORDS SUMMARY | 2023-11-15 03:44 | XMS_ITS | Encounter Summary ---
Author Organization [facility] Address [address] [place] [address] Phone Care Team Providers Care Commissioner Public Works Name Role Phone Nestor Gregorio DO Primary Care Provider Reason for Visit * Reason Comments Med Refill Encounter Details Date Type Department Care Team (Late Contact Info) Description 06/09/2020 Refill [facility] [address], [address] [place] [address] Sayda Nicolas MD [address] [place] [address] Social History Tobacco Use Types Packs/Day Years [...] (Late Contact Info) Description 05/31/2024 10:20 AM [facility] Office Visit [facility] [address], [address] [place] [address] Sayda Nicolas MD [address] [place] [address] documented as of this encounter Visit Diagnoses Not on filedocumented in this encounter Care Teams Commissioner Public Works Relationship Specialty Start Date End Date Nestor Gregorio DO [address] [address], [place] [address] PCP - General Family Medicine 05/08/19 documented as of this encounter
--- OUTSIDE RECORDS SUMMARY | 2023-11-15 03:44 | XMS_ITS | Encounter Summary ---
Author Organization [facility] Address [address] [place] [address] Phone Care Team Providers Care Fashion Director Party Plan Sales Name Role Phone Nestor Gregorio DO Primary Care Provider [phone] Reason for Visit * Reason Comments Med Refill Encounter Details Date Type Department Care Team (Late Contact Info) Description 08/17/2023 Refill [facility] [address], [address] [place] [address] Sayda Nicolas MD [address] [place] [address] Social History Tobacco Use Types Packs/Day Years [...] (Late Contact Info) Description 05/31/2024 10:20 AM [facility] Office Visit [facility] [address], [address] [place] [address] Sayda Nicolas MD [address] [address] documented as of this encounter Visit Diagnoses Not on filedocumented in this encounter Care Teams Fashion Director Party Plan Sales Relationship Specialty Start Date End Date Nestor Gregorio DO [address] [address], [place] [address] PCP - General Family Medicine 05/08/19 documented as of this encounter
--- OUTSIDE RECORDS SUMMARY | 2023-11-15 03:44 | XMS_ITS | Clinical Summary ---
Author Organization [facility] Address [address] [place] [address] Care Team Providers Care Environmental Conflict Manager Name Role Phone None Reported, Pcp Primary Care Provider Unavail able Source Comments Patient records contain information from all sites at [facility]. For routine questions regarding patient records, call [phone] during business hours, M-F 8:00 AM - 5:00 PM Central Time. Record requests for emergency care only can be directed to [phone] at any time.[facility] Allergies Active Allergy Reactions Criticality Noted Date Comments Penicillins Other (see comments) 11/07/2013 Other reaction(s): Unknown Medications No known medications Active Problems No known active problems Social History Tobacco Use Types Packs/Day Years Used Date Smoking Tobacco: Never Assessed Nutrition Answer Date Recorded Nutrition: EVOO Fat Source Unknown 01/30 Nutrition: Servings of Fruits/Vegetables per Day Not on file 01/30/2023 Dental Answer Date Recorded Dental: Regular Dentist Unknown 01/31/20 23 Sex and Gender Information Value Date Recorded Sex Assigned at Not on file Gender Identity Not on file Sexual Orientation Not on file Last Filed Vital Signs Vital Sign Reading Time Taken Comments Blood Pressure 137/90 01/30/2023 5:00 AM CDT Pulse 84 01/30/2023 6:00 AM CDT Temperature 36.2 ??C (97.2 ??F) 01/30/2023 3:46 AM CD T Respiratory Rate 18 01/30/2023 3:46 AM CDT Oxygen Saturation 93% 01/30/2023 6:00 AM CDT Inhaled Oxygen Concentration - - Weight 127 kg (279 lb 15.8 oz) 01/30/2023 3:45 A M CDT Height - - Body Mass Index - - Plan of Treatment Health Maintenance Due Date Last Done Comments CT Colonography 1975 Cologuard 1975 Colonoscopy 1975 Colorectal Cancer Screening 1975 FIT 1975 HIV Screening 1975 Hepatitis C Screening 1975 Lipid (Cholesterol) Screening 1975 COVID-19 Vaccine (#1) 09/19/1980 Pneumococcal vaccine (0-64 years) (1 of 2 - PCV) 09/19/1981 DTaP,Tdap,and Td Vaccines (1 - Tdap) 09/19/1994 Hepatitis B Vaccines (1 of 3 - 19+ 3-dose series) 09/19/1994 Zoster Vaccines (1 of 2) 09/19/1994 Influenza Vaccine (#1) 2023 2, 06/05/2020, 05/08/2019, Additional history exists Depression Screening (Annual PHQ-2) 06/14/2023 Fasting Glucose for Diabetes Screening 01/30/2026 01/30/2023 HPV Vaccines Aged Out No longer eligi ble based on patient's age to complete this topic Procedures Procedure Name Priority Date/Time Associated Diagnosis Comments COMPREHENSIVE METABOLIC PANEL, S/P STAT 01/30/2023 3:58 AM CDT from Last 3 Months or Most Recently Relevant to Health Maintenance Results * (ABNORMAL) Comprehensive Metabolic Panel (01/30/2023 3:58 AM CDT) Potassium, P 4.1 3.6 - 5.2 mmol/L 01/30/2023 4:42 AM CDT [facility] Sodium, P 136 135 - 145 mmol/L 01/30/2023 4:42 AM CDT [facility] Chloride, P 104 98 - 107 mmol/L 01/30/2023 4:42 AM CDT [facility] Bicarbonate, P 22 22 - 29 mmol/L 01/30/2023 4:42 AM CDT [facility] Anion Gap, P 10 7 - 15 01/30/2023 4:42 AM CDT [facility] BUN (Blood Urea Nitrogen), P 24 8 - 24 mg/dL 01/30/2023 4:42 AM CDT [facility] Creatinine 1.56(H) 0.74 - 1.35 mg/dL 01/30/2023 4:42 AM CDT [facility] Estimated GFR (eGFR) 55(L) >=60 mL/min/BS A 01/30/2023 4:42 AM CDT [facility] Comment: Estimated GFR calculated using the 2020 CKD_EPI creatinine equation. Calcium, Total, P 9.3 8.6 - 10.0 mg/dL 01/30/2023 4:42 AM CDT [facility] Glucose, P 112 70 - 140 mg/dL 01/30/2023 4:42 AM CDT [facility] Protein, Total, P 6.3 6.3 - 7.9 g/dL 01/30/2023 4:42 AM CDT [facility] Albumin, P 4.1 3.5 - 5.0 g/dL 01/30/2023 4:42 AM CDT [facility] Aspartate Aminotransferase (AST), P 17 8 - 48 U/L 01/30/2023 4:42 AM CDT [facility] Alkaline Phosphatase, P 97 40 - 129 U/L 01/30/2023 4:42 AM CDT [facility] Alanine Aminotransferase (ALT), P 17 7 - 55 U/L 01/30/2023 4:42 AM CDT [facility] Bilirubin, Total, P 0.4 <=1.2 mg/dL 01/30/2023 4:42 AM CDT [facility] Blood (Blood, Venous) 01/30/2023 3:58 AM CDT 01/30/2023 4:19 AM CDT Rafiq Smith M.D. LAB BLOOD ADD-ON [facility] [address] [place] [address], [facility] MKTO [facility] [place] [address] from Last 3 Months or Most Recently Relevant to Health Maintenance Care Teams Environmental Conflict Manager Relationship Specialty Start Date End Date None Reported, Pcp PCP - General Family Medicine 01/30/23
--- OUTSIDE RECORDS SUMMARY | 2023-11-15 03:44 | XMS_ITS | Encounter Summary ---
Author Organization [facility] Address [address] [place] [address] Phone Care Team Providers Care Cotton Seed Culler Name Role Phone Nestor Gregorio DO Primary Care Provider [phone] Reason for Visit * Reason Comments Med Refill Encounter Details Date Type Department Care Team (Late Contact Info) Description 08/07/2019 Refill [facility] [address], [address] [place] [address] Sayda Nicolas MD [address] [place] [address] Social History Tobacco Use Types Packs/Day Years [...] (Late Contact Info) Description 05/31/2024 10:20 AM [facility] Office Visit [facility] [address], [address] [place] [address] Sayda Nicolas MD [address] [email or web address] [address] documented as of this encounter Visit Diagnoses Not on filedocumented in this encounter Care Teams Cotton Seed Culler Relationship Specialty Start Date End Date Nestor Gregorio DO [address] [address], [place] [address] PCP - General Family Medicine 05/08/19 documented as of this encounter
--- OUTSIDE RECORDS SUMMARY | 2023-11-15 03:44 | XMS_ITS | Encounter Summary ---
Author Organization [facility] Address [address] [place] [address] Phone Care Team Providers Care Machine Plate Stacker Name Role Phone Nestor Gregorio DO Primary Care Provider [phone] Reason for Visit * Reason Comments Med Refill Encounter Details Date Type Department Care Team (Late Contact Info) Description 07/03/2019 Refill [facility] [address], [address] [place] [address] Sayda Nicolas MD [address] [place] [address] Social History Tobacco Use Types Packs/Day Years [...] (Late Contact Info) Description 05/31/2024 10:20 AM [facility] Office Visit [facility] [address], [address] [place] [address] Sayda Nicolas MD [address] [place] [address] documented as of this encounter Visit Diagnoses Not on filedocumented in this encounter Care Teams Machine Plate Stacker Relationship Specialty Start Date End Date Nestor Gregorio DO [address] [address], [place] [address] PCP - General Family Medicine 05/08/19 documented as of this encounter
--- OUTSIDE RECORDS SUMMARY | 2023-11-15 03:44 | XMS_ITS | Encounter Summary ---
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[facility]); Complication of kidney transplant, not otherwise specified Social History Tobacco Use [...] st Contact Info) Description 05/31/2024 10:20 AM [facility] Office Visit [facility] [address], [address] [place] [address] Sayda Nicolas MD [address] [employer] [address] [address] documented as of this encounter Visit Diagnoses Diagnosis 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
--- OUTSIDE RECORDS SUMMARY | 2023-11-15 03:44 | XMS_ITS | Encounter Summary ---
Author Organization [facility] Address [address] [place] [address] Phone Care Team Providers Care Relief Master Name Role Phone Nestor Gregorio DO Primary Care Provider [phone] Reason for Visit * Reason Comments CKD Encounter Details Date Type Department Care Team (Late st Contact Info) Description 09/29/2023 10:20 AM MDT Office Visit [facility] [address] [employer], [address] [place] [address] Sayda Nicolas MD [address] [place] [address] Stage 3a chronic kidney disease (CMS-HCC) (Primary Dx); Kidney transplant status; Iron deficiency anemia, not otherwise specified; Renal osteodystrophy; Hyperuricemia; Hypomagnesemia; Urinary tract infectious disease; Proteinuria, not otherwise specified; Vitamin D deficiency, not otherwise specified; Prediabetes Social History Tobacco Use Types Packs/Day Years Used Date Smoking Tobacco: Never Smokeless Tobacco: Never Alcohol Use Standard Drinks/Week Comments Not Currently 0 (1 standard drink = 0.6 oz pur e alcohol) Sex and Gender Information Value Date Recorded Sex Assigned at Not on file Gender Identity Not on file Sexual Orientation Not on file documented as of this encounter Last Filed Vital Signs Vital Sign Reading Time Taken Comments Blood Pressure 139/85 09/29/2023 9:55 AM CDT Pulse 100 09/29/2023 9:55 AM CDT Temperature - - Respiratory Rate - - Oxygen Saturation - - Inhaled Oxygen Concentration - - Weight 138 kg (305 lb) 09/29/2023 9:55 AM CDT Height 182.9 cm (6') 09/29/2023 9:55 AM CDT Body Mass Index 41.37 09/29/2023 9:55 AM CDT documented in this encounter Progress Notes * Sayda Nicolas MD - 09/29/2023 10:20 AM CDT Images from the original note were not included. Primary Care Physician: Nestor Gregorio DO Referring Physician: No care production team manager to display Date of consult: 09/29/23 History of Present Illness: Delvin Casanova is a 48 y.o. male presenting with stage 3a chronic kidney disease with a history of renal failure due to Goodpasture's Syndrome.. 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 His immunosuppressive regimen was adjusted with a goalFK of 7. He was diagnosed with a fib in 2017 and CAD for which he has had a coronary artery stent placed. In 06/04 he underwent a CABG x 3v. He presents for routine follow up today. He notes he feels well but admits to some fatigue. When asked about his sleep he admits that he does not sleep well and that his mind keeps going allowing only 4-5 hours of sleep. He tried ambien in the past without relief He remains physically active on his property and recently repaired a fence Past Medical History: Past Medical History: Diagnosis Date Anemia Cerebral artery occlusion, unspecified, with cerebral infarction (CMS-HCC) Cerebral infarction ([facility]) ten years ago- treated at [facility] Chronic kidney disease Chronic kidney disease (CKD) transplanted on 10/10/2011 Essential (primary) hypertension well controlled Past Surgical History: Procedure Laterality Date DIALYSIS FISTULA CREATION 07/2005 URETERAL REIMPLANTATION OF TRANSPLANTED KIDNEY 05/02/2003 URETERAL REIMPLANTATION OF TRANSPLANTED KIDNEY 10/10/2011 does not have any pertinent problems on file. Social and Family History: History reviewed. No pertinent family history. Delvin Casanova reports that he has never smoked. He has never used smokeless tobacco. He reports thathe does not currently use alcohol. He reports that he does not currently use drugs. Medications: Current Outpatient Medications: apixaban (ELIQUIS) 5 MG tablet, 1 PO BID, Disp: , Rfl: 0 atorvastatin (LIPITOR) 40 MG tablet, TAKE 1 TABLET BY MOUTH ONCE DAILY AT BEDTIME FOR CHOLESTEROL .APPOINTMENT REQUIRED FOR FUTURE REFILLS, Disp: , Rfl: 0 metoprolol succinate XL (TOPROL-XL) 100 MG 24 hr tablet, Take 1 tablet (100 mg total) by mouth 1 (one) time each day, Disp: 90 tablet, Rfl: 3 predniSONE (DELTASONE) 5 MG tablet, Take 2 tablets by mouth once daily, Disp: 60 tablet, Rfl: 11 tacrolimus (PROGRAF) 1 MG capsule, Take 2 capsules by mouth twice daily (Patient taking differently: Take 1 mg by mouth in the morning and 1 mg before bedtime.), Disp: 120 capsule, Rfl: 11 sildenafil (VIAGRA) 50 MG tablet, Take 50 mg by mouth, Disp: , Rfl: Today's Medication Changes Accurate as of September 29, 2023 10:15 AM. If you have any questions, ask your nurse or doctor. Modified Meds tacrolimus 1 MG capsule Commonly known as: PROGRAF Take 2 capsules by mouth twice daily What changed: how much to take Allergies: Delvin Casanova is allergic to penicillin v potassium and penicillins. Review of Systems: Review of Systems Constitutional: Positive for fatigue. Negative for appetite change, fever and unexpected weight change. Respiratory: Negative for cough and shortness of breath. Cardiovascular: Negative for chest pain and palpitations. Gastrointestinal: Negative for abdominal distention, abdominal pain, constipation, diarrhea and nausea. Genitourinary: Negative for difficulty urinating, dysuria and hematuria. Physical Exam: Vitals: 09/29/23 0955 BP: 139/85 BP Location: Left arm Patient Position: Sitting BP Cuff Size: Adult Pulse: 100 Weight: (!) 305 lb (138 kg) Height: 6' (1.829 m) Body mass index is 41.37 kg/m??. Physical Exam Vitals reviewed. Constitutional: Appearance: He is well-developed and well-nourished. Cardiovascular: Rate and Rhythm: Normal rate and regular rhythm. Heart sounds: Normal heart sounds. Pulmonary: Effort: Pulmonary effort is normal. Breath sounds: Normal breath sounds. Abdominal: General: Bowel sounds are normal. There is no distension. Palpations: Abdomen is soft. Tenderness: There is no abdominal tenderness. Musculoskeletal: General: No edema. Normal range of motion. Skin: General: Skin is warm. Neurological: Mental Status: He is alert and oriented to person, place, and time. Psychiatric: Mood and Affect: Mood and affect normal. Behavior: Behavior normal. Labs and Imaging: Labs reviewed with patient in clinic: Synopsis No data to display Assessment and Plan Mr Casanova is status post DDKT on 10/10/11 with a prior transplant and a h/o Goodpastures and PTLD treated with rituxan He also has CAD and atrial flutter Problems: 1) Disorder of transplanted kidney: Currently he is receiving tacrolimus 2mg q 12 and prednisone 10mg qd. Cr 1.56mg/dl in 02/03 Cr 1.69mg/dl in 11/03, FK 12 Cr 1.54mg/dl in 09/03, FK 10.8 Cr 1.8mg/dl in 07/06 Cr 1.5mg/dl in 06/02 Cr 1.63mg/dl in 05/02 cr 1.53mg/dl in 05/01 cr 1.53 in 12/29 cr 1.44mg/dl in 08/29 Urine pro/cr 125mg in 01/03 Urine pro/cr 295mg in 09/03 Will follow up today's labs and f/u in 4 -6 months depending on his work schedule Orders for extensive labs given for 1 week following initiation of trazodone 2) Post-transplant lymphoproliferative disorder: Resolved Hb 13.5 in 09/03 hb 10 g/dl in 07/06 WBC 11.8 3) Goodpasture's syndrome: resolved 4) coronary artery disease: s/p CABG 06/04 5) hypertension: BP controlled on Metoprolol 100mg bid 6) Osteoporosis: check vitamin D 7) Obstructive sleep apnea syndrome: declined sleep study 8) atrial fibrillation: on eliquis, following with Dr. Vaughan 9) Coronary arteriosclerosis: s/p CABG, asymptomatic 10) Hypomagnesemia: mg 1.6mg/dl in 09/03, will start supplement 11) Disorder of phosphorus metabolism: no recent PTH/vitamin D 12) Insomnia: will start trial of trazodone, risks re: priapism discussed Repeat labs in 1 week to recheck FK Body mass index is 41.37 kg/m??. Follow up plan to address BMI is exercise and caloric restriction as tolerated. There are no Patient Instructions on file for this visit. No orders of the defined types were placed in this encounter. Future Appointments Future Appointments Date Time Provider Department Center 09/29/2023 10:20 AM Sayda Nicolas MD [id number] documented in this encounter Plan of Treatment Upcoming Encounters Date Type Department Care Team (Late st Contact Info) Description 05/31/2024 10:20 AM [facility] Office Visit [facility] [address], [address] [place] [address] Sayda Nicolas MD [address] [place] [address] Scheduled Orders Name Type Priority Associated Diagnoses Orde r Schedule CBC (includes Differential/Platelets ) Lab Routine Stage 3a chronic kidney disease ([facility]) Kidney transplant status Iron deficiency anemia, not otherwise specified 1 Occurrences starting 09/29/2023 until 09/28/2024 PTH Intact w/o Calcium, Serum Lab Routine Stage 3a chronic kidney disease ([facility]) Kidney transplant status Renal osteodystrophy 1 Occurrences starting 09/29/2023 until 09/28/2024 Albumin/Creatinine Ratio, Random, Urine Lab Routine Stage 3a chronic kidney disease ([facility]) Kidney transplant status Proteinuria, not otherwise specified 1 Occurrences starting 09/29/2023 until 09/28/2024 Hemoglobin A1c w/ EAG, Serum Lab Routine Stage 3a chronic kidney disease ([facility]) Kidney transplant status Prediabetes 1 Occurrences starting 09/29/2023 until 09/28/2024 documented as of this encounter Procedures Procedure Name Priority Date/Time Associated Diagnosis Comments RENAL FUNCTION PANEL (RFP) Routine 10/20/2023 8:17 AM CDT Stage 3a chronic kidney disease ([facility]) Kidney transplant status TACROLIMUS (FK506), SERUM Routine 10/07/2023 9:27 AM CDT Stage 3a chronic kidney disease ([facility]) Kidney transplant status URINALYSIS, COMPLETE, W/ REFLEX TO CULTURE Routine 10/07/2023 9:27 AM CDT Stage 3a chronic kidney disease ([facility]) Kidney transplant status Urinary tract infectious disease VITAMIN D, 25-HYDROXY, SERUM Routine 10/07/2023 9:27 AM CDT Stage 3a chronic kidney disease ([facility]) Kidney transplant status Vitamin D deficiency, not otherwise specified RENAL FUNCTION PANEL (RFP) Routine 10/07/2023 9:27 AM CDT Stage 3a chronic kidney disease ([facility]) Kidney transplant status HEPATIC FUNCTION PANEL (HFP) Routine 10/07/2023 9:27 AM CDT Stage 3a chronic kidney disease ([facility]) Kidney transplant status URIC ACID, SERUM Routine 10/07/2023 9:27 AM CDT Stage 3a chronic kidney disease ([facility]) Kidney transplant status Hyperuricemia THYROID STIMULATING HORMONE (TSH), SERUM Routine 10/07/2023 9:27 AM CDT Stage 3a chronic kidney disease ([facility]) Kidney transplant status MAGNESIUM, SERUM Routine 10/07/2023 9:27 AM CDT Stage 3a chronic kidney disease ([facility]) Kidney transplant status Hypomagnesemia FERRITIN, SERUM Routine 10/07/2023 9:27 AM CDT Stage 3a chronic kidney disease ([facility]) Kidney transplant status Iron deficiency anemia, not otherwise specified IRON AND TIBC, SERUM Routine 10/07/2023 9:27 AM CDT Stage 3a chronic kidney disease ([facility]) Kidney transplant status Iron deficiency anemia, not otherwise specified PROTEIN / CREATININE RATIO, URINE Routine 10/07/2023 9:27 AM CDT Stage 3a chronic kidney disease ([facility]) Kidney transplant status Proteinuria, not otherwise specified TACROLIMUS (FK506), SERUM Routine 09/29/2023 8:08 AM CDT Stage 3a chronic kidney disease ([facility]) Kidney transplant status documented in this encounter Results * (ABNORMAL) Renal Function Panel (RFP) (10/20/2023 8:17 AM CDT) Glucose, Serum/Plasma 103 70 - 110 mg/dL [facility] Urea nitrogen, Serum/Plasma (BUN) 27(H) 5 - 25 mg/dL [facility] Creatinine, Serum/Plasma 1.67(H) 0.72 - 1.25 mg/dL [facility] Carbon dioxide CO2), total, Serum/Plasma 20(L) 21 - 32 mmol/L [facility] Chloride, Serum/Plasma 106 96 - 112 mmol/L [facility] Sodium, Serum/Plasma 136 135 - 146 mmol/L [facility] Potassium, Serum/Plasma 4.7 3.5 - 5.0 mmol/L [facility] Calcium, Serum/Plasma 9.8 8.5 - 10.7 mg/dL [facility] Phosphate, Serum/Plasma 2.5 2.4 - 4.3 mg/dL [facility] Albumin, Synovial fluid 4.1 3.4 - 4.7 g/dL [facility] eGFR, Serum/Plasma (CKD-EPI) 50(L) >=60 [facility] Blood 10/20/2023 8:17 AM CDT Sayda Nicolas MD LAB BLOOD ORDERABLES [facility] * Thyroid Stimulating Hormone (TSH), Serum (10/07/2023 9:27 AM CDT) Pathologist [facility] TSH, Serum/Plasma 1.90 0.35 - 5.00 uIU/mL [facility] Blood (Blood, Venous) 10/07/2023 9:27 AM CDT Sayda Nicolas MD LAB BLOOD ORDERABLES [facility] * Tacrolimus (FK506), Serum (10/07/2023 9:27 AM CDT) Tacrolimus (FK506), Blood 9.2 7.0 - 19.0 ng/mL [facility] Blood (Blood, Venous) 10/07/2023 9:27 AM CDT Narrative [facility] - 10/07/2023 1:11 PM CDT Tacrolimus assay performed by chemiluminescence on the [employer] i2000. Sayda Nicolas MD LAB BLOOD ORDERABLES Performing Organization Address [facility] de Phone Number [facility] * Magnesium, Serum (10/07/2023 9:27 AM CDT) Pathologist [facility] Magnesium, Serum/Plasma 1.8 1.7 - 2.9 mg/dL [facility] Blood (Blood, Venous) 10/07/2023 9:27 AM CDT Sayda Nicolas MD LAB BLOOD ORDERABLES Performing Organization Address [facility] de Phone Number [facility] * (ABNORMAL) *Hepatic Function Panel (HFP) (10/07/2023 9:27 AM CDT) Pathologist [facility] Albumin, Synovial fluid 3.8 3.4 - 4.7 g/dL [facility] Protein, Serum/Plasma 5.9(L) 6.2 - 8.2 g/dL [facility] Bilirubin, total, Serum/Plasma 0.8 0.1 - 1.2 mg/dL [facility] Alkaline phosphatase, Serum/Plasma 76 39 - 139 U/L [facility] Aspartate Aminotransferase (AST), Serum/Plasma 14 8 - 42 U/L [facility] Alanine Aminotransferase (ALT), Serum/Plasma 13 7 - 40 U/L [facility] Bilirubin, conjugated, Serum/Plasma 0.2(L) 0.3 - 0.9 mg/dL [facility] Blood (Blood, Venous) 10/07/2023 9:27 AM CDT Sayda Nicolas MD LAB BLOOD ORDERABLES Performing Organization Address [facility] Co de Phone Number [facility] * (ABNORMAL) Vitamin D, 25-Hydroxy, Serum (10/07/2023 9:27 AM CDT) Pathologist [facility] Vitamin D+Metabolites, Serum/Plasma 12.6(L) (<10=Defic ient; 10-29=Insu fficient; 30-96=Suff icient) ng/mL [facility] 10/07/2023 9:27 AM CDT Sayda Nicolas MD LAB BLOOD ORDERABLES [facility] * (ABNORMAL) Protein / Creatinine Ratio, Urine (10/07/2023 9:27 AM CDT) Protein, Urine 29.5 mg/dL [facility] Creatine, Urine 0.0797 g/dL [facility] Protein/Creatin ine, Urine 370(H) 0 - 199 mg/g [facility] Urine 10/07/2023 9:27 AM CDT Sayda Nicolas MD LAB URINE ORDERABLES Performing Organization Address [facility] Co de Phone Number [facility] * (ABNORMAL) Urinalysis, Complete, w/ Reflex to Culture (10/07/2023 9:27 AM CDT) Color of Stone Yellow [facility] Clarity [...] 1.0 [facility] Specific gravity of Urine 1.010 1.005 - 1.030 [facility] Leukocyte esterase, Urine Negative Negative [facility] Nitrite, Urine Negative Negative [facility] Leukocytes, Urine 1 <5 avg/hpf [facility] Erythrocytes, Urine <1 <5 avg/hpf [facility] 10/07/2023 9:27 AM CDT Sayda Nicolas MD LAB BLOOD ORDERABLES Performing Organization Address City/[facility]/ZIP Co de Phone Number [facility] * Uric Acid, Serum (10/07/2023 9:27 AM CDT) Urate, Serum/Plasma 8.6 3.0 - 9.2 mg/dL [facility] Blood 10/07/2023 9:27 AM CDT Sayda Nicolas MD LAB BLOOD ORDERABLES [facility] * Ferritin, Serum (10/07/2023 9:27 AM CDT) Ferritin, Serum/Plasma 52 10 - 259 ng/mL [facility] Blood (Blood, Venous) 10/07/2023 9:27 AM CDT Sayda Nicolas MD LAB BLOOD ORDERABLES [facility] * (ABNORMAL) Iron and TIBC, Serum (10/07/2023 9:27 AM CDT) Transferrin, Serum/Plasma 273 221 - 409 mg/dL [facility] Iron, Serum/Plasma 49 25 - 156 ug/dL [facility] Iron binding capacity, Serum/Plasma 407 297 - 504 ug/dL [facility] Iron saturation, Serum/Plasma 12.0(L) 15.0 - 55.0 % [facility] Blood 10/07/2023 9:27 AM CDT Sayda Nicolas MD LAB BLOOD ORDERABLES Performing Organization Address City/[facility] Co de Phone Number [facility] * (ABNORMAL) Renal Function Panel (RFP) (10/07/2023 9:27 AM CDT) Glucose, Serum/Plasma 103 70 - 110 mg/dL [facility] Urea nitrogen, Serum/Plasma (BUN) 25 5 - 25 mg/dL [facility] Creatinine, Serum/Plasma 1.77(H) 0.72 - 1.25 mg/dL [facility] Carbon dioxide CO2), total, Serum/Plasma 22 21 - 32 mmol/L [facility] Chloride, Serum/Plasma 107 96 - 112 mmol/L [facility] Sodium, Serum/Plasma 138 135 - 146 mmol/L [facility] Potassium, Serum/Plasma 4.5 3.5 - 5.0 mmol/L [facility] Calcium, Serum/Plasma 9.7 8.5 - 10.7 mg/dL [facility] Phosphate, Serum/Plasma 2.6 2.4 - 4.3 mg/dL [facility] Albumin, Synovial fluid 3.8 3.4 - 4.7 g/dL [facility] eGFR, Serum/Plasma (CKD-EPI) 47(L) >=60 [facility] Blood 10/07/2023 9:27 AM CDT Sayda Nicolas MD LAB BLOOD ORDERABLES [facility] * Tacrolimus (FK506), Serum (09/29/2023 8:08 AM CDT) Tacrolimus (FK506), Blood 9.9 7.0 - 19.0 ng/mL [facility] Blood (Blood, Venous) 09/29/2023 8:08 AM CDT Narrative [facility] - 09/29/2023 2:07 PM CDT Tacrolimus assay performed by chemiluminescence on the [employer] i2000. Sayda Nicolas MD LAB BLOOD ORDERABLES Performing Organization Address City/[facility]/ZIP Co de Phone Number [facility] documented in this encounter Visit Diagnoses Diagnosis Stage 3a chronic kidney disease ([facility])- Primary Kidney transplant status Iron deficiency anemia, not otherwise specified Renal osteodystrophy Hyperuricemia Hypomagnesemia Urinary tract infectious disease Proteinuria, not otherwise specified Vitamin D deficiency, not otherwise specified Prediabetes documented in this encounter Care Teams Relief Master Relationship Specialty Start Date End Date Nestor Gregorio DO [address] [address], [place] [address] PCP - General Family Medicine 05/08/19 documented as of this encounter
--- OUTSIDE RECORDS SUMMARY | 2023-11-15 03:44 | XMS_ITS | Referral Summary ---
Author Organization [facility] Address [address] [place] [address] Care Team Providers Care Community Resource Officer Name Role Phone None Reported, Pcp Primary Care Provider Unavail able Source Comments Patient records contain information from all sites at [facility]. For routine questions regarding patient records, call [phone] during business hours, M-F 8:00 AM - 5:00 PM Central Time. Record requests for emergency care only can be directed to [phone] at any time.[facility] Allergies Active Allergy Reactions Criticality Noted Date [...] Mass Index - - Plan of Treatment Not on file Procedures Procedure Name Priority Date/Time Associated Diagnosis Comments COMPREHENSIVE METABOLIC PANEL, S/P STAT 01/30/2023 3:58 AM CDT from Last 3 Months or Most Recently Relevant to Health Maintenance Results * (ABNORMAL) Comprehensive Metabolic Panel (01/30/2023 3:58 AM CDT) Pathologist [facility] Potassium, P 4.1 3.6 - 5.2 mmol/L [...] CDT Rafiq Smith M.D. LAB BLOOD ADD-ON [facility] [address] [place] [address], [facility] [place] [address] from Last 3 Months or Most Recently Relevant to Health Maintenance Care Teams Community Resource Officer Relationship Specialty Start Date End Date None Reported, Pcp PCP - General Family Medicine 01/30/23
--- OUTSIDE RECORDS SUMMARY | 2023-11-15 03:44 | XMS_ITS | Encounter Summary ---
Author Organization [facility] Address [address] [place] [address] Phone Care Team Providers Care Human Resources Vice President Name Role Phone Nestor Gregorio DO Primary Care Provider [phone] Reason for Visit * Reason Comments Med Refill Encounter Details Date Type Department Care Team (Late Contact Info) Description 07/14/2021 Refill [facility] [address], [address] [place] [address] Sayda Nicolas MD [address] [place] [address] Social History Tobacco Use Types Packs/Day Years [...] (Late Contact Info) Description 05/31/2024 10:20 AM [facility] Office Visit [facility] [address], [address] [place] [address] Sayda Nicolas MD [address] [address] documented as of this encounter Visit Diagnoses Not on filedocumented in this encounter Care Teams Human Resources Vice President Relationship Specialty Start Date End Date Nestor Gregorio DO [address] [address], [place] [address] PCP - General Family Medicine 05/08/19 documented as of this encounter
[2023-11-15 03:47] LABS: Albumin* 4.5 g/dL (3.3-5.0); Chloride* 104 mmol/L (96-114)
[2023-11-15 03:48] LABS: Sodium* 138 mmol/L (135-149)
[2023-11-15 03:50] LABS: Alkaline Phosphatase* 86 U/L (40-150); Anion Gap 7 mEq/L (7-15); Aspartate Amino Transferase* 22 U/L (12-35); Bilirubin Direct* 0.4 mg/dL (0.0-0.5); Bilirubin Total* 1.2 mg/dL (0.1-1.5); Blood Urea Nitrogen* 18 mg/dL (5-24); Carbon Dioxide* 27 mmol/L (20-32); Creatinine* 1.5 mg/dL (0.5-1.5); Estimated Glomerular Filt Rate 57 ml/min; Glucose* 95 mg/dL (60-115); Total Protein* 7.3 g/dL (6.0-8.3)
[2023-11-15 03:51] LABS: Alanine Aminotransferase* 17 U/L (4-50); Calcium* 9.4 mg/dL (8.4-10.6); Magnesium* 1.7 mg/dL (1.5-2.6)
[2023-11-15 04:00] LABS: NT Pro B Type NatriureticPept* 4480 pg/mL
[2023-11-15 04:06] LABS: Basophils Absolute Auto 0.04 K/uL (0.00-0.30); Basophils Percent Auto 0.4 % (0.0-3.0); Eosinophils Absolute Auto 0.21 K/uL (0.00-0.50); Eosinophils Percent Auto 2.1 % (0.0-7.0); Hematocrit 55.6 % (37.0-53.0); Hemoglobin* 17.8 gm/dL (13.5-17.5); Immature Granulocytes Abs Auto 0.03 K/uL (0.00-0.30); Immature Granulocytes Pct Auto 0.3 %; Lymphocytes Percent Auto 18.9 % (20-44); Mean Corpuscular HGB Conc 32 gm/dL (32-36); Mean Corpuscular Hemoglobin 27 pg (26-34); Mean Corpuscular Volume 84 fL (80-100); Monocytes Percent Auto 10.7 % (0.0-11.0); Neutrophils Percent Auto 67.6 % (42.0-72.0); Platelet Count* 196 K/uL (140-440); Red Blood Count 6.65 m/uL (4.30-5.90); White Blood Count* 9.91 K/uL (4.50-11.00)
[2023-11-15 04:08] LABS: Slide Review Reflex No
[2023-11-15] MEDS: NITROGLYCERIN/DEXTROSE 25,000 MCG/250 ML BOTTLE 3 MCG IVPB ×2 (04:22→04:48)
[2023-11-15] MEDS: ACETAMINOPHEN 325 MG TABLET 650 MG PO ×3 (04:27→20:05)
[2023-11-15] MEDS: NITROGLYCERIN/DEXTROSE 25,000 MCG/250 ML BOTTLE 6 MCG IVPB (04:52)
[2023-11-15] MEDS: FUROSEMIDE 10 MG/ML inj 40 MG IVP (05:18)
[2023-11-15] MEDS: HYDROmorphone 0.5 mg/0.5 ml inj IVP ×6 (05:39→23:18)
--- NOTE | 2023-11-15 06:16 | CRLHL7_ITS ---
For Patients: As a result of the 21st Century Cures Act, medical imaging exams and procedure reports are released immediately into your electronic medical record. You may view this report before your referring provider. If you have questions, please contact your health care provider. INDICATION: Chest pain radiating to the back. Clinical signs and symptoms of acute aortic syndrome. COMPARISON: None TECHNIQUE: CT examination of the chest, and pelvis was performed before and after the uneventful intravenous administration of 95 cc of Isovue 370. Thin section axial images were obtained from the thoracic inlet through the pubic symphysis. Oral contrast was not administered. Sagittal and coronal reformatted imaging was performed. Initially, a noncontrast chest CT was performed. After contrast administration, and chest, abdomen and pelvis study was performed during the systemic arterial phase of injection. Please note that all CT scans at this facility use dose modulation, iterative reconstruction, and/or weight-based dosing when appropriate to reduce radiation dose to as low as reasonably achievable. FINDINGS: CHEST: The heart is moderately enlarged. There has been a sternotomy. Atherosclerotic vascular calcifications are noted. There is no mediastinal or hilar adenopathy or mass. Minimal bibasilar parenchymal opacities probably due to atelectasis or scarring. No pleural effusion or pneumothorax. AORTA AND SYSTEMIC ARTERIAL VASCULARITY: There is no evidence of intramural hematoma. There are significant diffuse atherosclerotic findings in the chest, abdomen and pelvis. There is no dissection. There is no aneurysm. There is occlusion of the right external iliac system. The right SFA is reconstituted via collaterals. 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 The narrowing in this area does not appear to be atherosclerotic. The [place] renal arteries are diminutive. PULMONARY ARTERY DISTRIBUTION: Bolus timing is almost purely systemic arterial limiting this study in this regard. No large central pulmonary emboli ABDOMEN AND PELVIS: LIVER/BILIARY SYSTEM:The liver is normal in size and configuration. There is no focal mass and there is no intra- or extra hepatic biliary ductal dilatation.Hepatic steatosis. Normal-appearing gallbladder. ADRENALS: Normal KIDNEYS, URETERS and BLADDER:Atrophic [place] kidneys. Left iliac fossa transplant kidney without evidence of obstructive uropathy. The bladder appears normal SPLEEN:Normal appearance. PANCREAS: Appears normal. RETROPERITONEUM and MESENTERY: There is no mass, adenopathy or aortic aneurysm. Atherosclerotic vascular calcifications as mentioned above GASTROINTESTINAL SYSTEM: There is no evidence of diverticulitis, colitis, mechanical obstruction, or appendicitis. The small bowel as visualized appears normal.Scattered diverticulosis PELVIS: No mass, adenopathy or free fluid. OSSEOUS STRUCTURES and ABDOMINAL WALL: No acute osseous abnormality. No significant abdominal wall abnormality. Incidental small fat containing umbilical region hernia.No significant abdominal wall defect. OTHER: No free fluid or free air. IMPRESSION: 1. CHEST: Enlarged heart. Sternotomy. Atherosclerotic vascular calcifications. Minimal bibasilar atelectasis or scarring. Normal pleural spaces 2. AORTA AND SYSTEMIC ARTERIAL VASCULARITY: No intramural hematoma. No dissection. Significant diffuse atherosclerosis as described. There is occlusion of the right external iliac artery with reconstitution of the SFA on the right via collaterals. There are also findings which may be related to median arcuate ligament syndrome at the celiac axis in the appropriate clinical setting 3. PULMONARY ARTERY DISTRIBUTION: Bolus timing is nearly all systemic arterial. No large central pulmonary emboli identified 4. ABDOMEN AND PELVIS: Atrophic [place] kidneys. Transplant kidney in the left iliac fossa without obstructive uropathy. Other incidental and nonacute appearing findings as above in the abdomen or pelvis 5. Body wall and osseous structures: No acute osseous finding. Small fat containing umbilical region hernia. Please note that all CT scans at this facility use dose modulation, iterative reconstruction, and/or weight-based dosing when appropriate to reduce radiation dose to as low as reasonably achievable. Dictated by Nicola Oliveira MD @ 11/15/2023 7:17:29 AM (Electronically Signed)
[2023-11-15 06:43] LABS: Troponin, Point-of-Care* 0.02 ng/ml (0.01-0.04)
[2023-11-15 07:04] LABS: Troponin I* 0.03 ng/mL (0.01-0.04)
[2023-11-15] MEDS: TACROLIMUS 0.5 MG CAPSULE 1.5 MG PO (08:57)
[2023-11-15] MEDS: APIXABAN 5 MG TABLET PO ×2 (08:59→20:06)
--- NOTE | 2023-11-15 09:00 | P.IMHP_ITS ---
Hospitalist- H&P: HPI History of Present Illness Date Seen: 11/15/23 Chief complaint: chest pain radiating to left shoulder Narrative: Delvin Casanova is a 48 year old male with a history of coronary artery disease ([place] in 2022, status post CABG x4) and renal transplant who presented to our e mergency department this morning with chest pain. He was sleeping when pain started, no recent exertional activities. Pain was located in his left chest, radiated to left back and shoulder, started a few hours prior to presentation. He did not try any nitro at home prior to presenting to the emergency room. There was no associated nausea or vomiting, no diarrhea. No shortness of breath. He did not eat anything out of the normal for supper last night. He has not missed any doses of his regular medications. ER course and findings: - initial troponin 0.14 - pain responded to nitroglycerin sublingual, nitro drip then initiated. Pain returned and Dilaudid given with good relief - repeat troponin within normal limits (this was confirmed thrice) - emergency room physician reviewed case with Cardiology, who recommend stay discontinuation of nitro drip, admission for telemetry, serial troponins, echocardiogram, stress test if possible Upon arrival to the floor, patient does not have any chest pain or other concerns for hospitalist team. When the pain returned in the ER, he described it as feeling sore. Patient is from [place]; in [place] for work. His PCP is Dr. Felipe lopez in [place], [place]. Follows with the [place] [facility] for his cardiology care. History is updated below. 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) use of anticoagulants (ICD-10) Atrial fibrillation and flutter ?I48.91 - Unspecified atrial fibrillation (ICD-10) ?I48.92 - Unspecified atrial flutter (ICD-10) Surgical History (Updated 11/15/23 @ 09:23 by Fernanda Miller MD) S/P kidney transplant ?Z94.0 - Kidney transplant status (ICD-10) Status post coronary artery bypass graft ?Z95.1 - Presence of aortocoronary bypass graft (ICD-10) Renal transplant recipient ?Z94.0 - Kidney transplant status (ICD-10) S/P CABG x 4 ?Z95.1 - Presence of aortocoronary bypass graft (ICD-10) Social History (Updated 11/15/23 @ 09:19 by Fernanda Miller MD) Narrative: Lives independently near [place], [place]. 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 Rare alcohol, 1/2 pack per day smoker. Not currently partnered, + adult children. He is unsure who would be his medical decision maker in the event of a medical crisis. He requests DNR/DNI status. Smoking Status: Current every day smoker What tobacco products do you use: cigarettes Smoking packs per day: 0.5 Smoking cigarettes per day: 10.0 Years smoked: 20 Smoking pack-years: 10.00 Second hand tobacco smoke exposure: No How often do you have a drink containing alcohol: never How often do you have six or more drinks on one occasion: Never AUDIT-C Alcohol total score: 0 Non-prescribed substance use: denies use service: No Meds Home Medications and Allergies Home Medications ?Medication ?Instructions ?Recorded ?Confirmed ?Type apixaban 5 mg tablet (Eliquis) 5 mg PO BID 11/15/23 11/15/23 History atorvastatin 40 mg tablet 40 mg PO HS 11/15/23 11/15/23 History ergocalciferol (vitamin D2) 1,250 1,250 mcg PO Q7D 11/15/23 11/15/23 History mcg (50,000 unit) capsule folic acid 1 mg tablet 1 mg PO DAILY 11/15/23 11/15/23 History losartan 25 mg tablet 25 mg PO DAILY 11/15/23 11/15/23 History metoprolol succinate 25 mg 25 mg PO BID 11/15/23 11/15/23 History tablet,extended release 24 hr nitroglycerin 0.4 mg sublingual 0.4 mg sublingual Q5M PRN angina 11/15/23 11/15/23 History tablet prednisone 5 mg tablet 10 mg PO DAILY 11/15/23 11/15/23 History tacrolimus 0.5 mg capsule, 1 - 1.5 mg PO BID 11/15/23 11/15/23 History immediate-release trazodone 100 mg tablet 100 mg PO HS PRN insomnia 11/15/23 11/15/23 History Allergies Allergy/AdvReac Type Severity Reaction Status Date / Time Penicillins Allergy Unknown Verified 11/15/23 03:26 Exam Narrative: Exam Narrative: GEN: Alert and oriented, sitting comfortably in bed and answering questions appropriately HEENT: EOMIs bilaterally, no scleral icterus CV: RRR, No concerning murmurs R: LCTA bilaterally without concerning wheezing, air movement adequate Ext: 1+ edema bilateral lower extremities, noted hyperpigmented discoloration of bilateral anterior shins consistent with PVD Skin: No other concerning skin lesions or rashes on exposed skin Neuro: No focal deficits or resting tremor, gait not observed Psych: Appropriate Const: Vital Signs, click to edit/add: Vital Signs - 24 hr 11/15/23 03:20 11/15/23 03:35 11/15/23 03:40 Temperature 97.8 F 97.5 F L Pulse Rate Pulse Rate [Blood Pressure Cuff] Pulse Rate [Pulse Oximeter] 111 H 105 H Respiratory Rate 22 20 18 Blood Pressure Blood Pressure [Ri ght Arm] Blood Pressure [Ri ght Forearm] 157/107 H 165/112 H 143/99 H Pulse Oximetry 99 96 97 [facility] Room Air 11/15/23 03:45 11/15/23 04:27 11/15/23 05:25 Temperature Pulse Rate Pulse Rate [Blood Pressure Cuff] Pulse Rate [Pulse Oximeter] 109 H 98 104 H Respiratory Rate 18 18 18 Blood Pressure Blood Pressure [Ri ght Arm] Blood Pressure [Ri ght Forearm] 133/94 H 153/96 H 137/97 H Pulse Oximetry 97 98 98 [facility] Room Air Room Air 11/15/23 06:27 11/15/23 08:06 11/15/23 08:07 Temperature Pulse Rate 85 76 Pulse Rate [Blood Pressure Cuff] Pulse Rate [Pulse Oximeter] 101 H Respiratory Rate 18 Blood Pressure 165/93 H Blood Pressure [Ri ght Arm] Blood Pressure [Ri ght Forearm] 134/95 H Pulse Oximetry 97 94 97 Oxygen Delivery Me thod Room Air 11/15/23 08:12 11/15/23 08:15 11/15/23 08:17 Temperature Pulse Rate 85 78 84 Pulse Rate [Blood Pressure Cuff] Pulse Rate [Pulse Oximeter] Respiratory Rate Blood Pressure 159/97 H 156/101 H Blood Pressure [Ri ght Arm] Blood Pressure [Ri ght Forearm] Pulse Oximetry 95 98 97 Oxygen Delivery Me thod 11/15/23 08:22 11/15/23 08:40 Temperature 97.7 F Pulse Rate 82 Pulse Rate [Blood Pressure Cuff] 82 Pulse Rate [Pulse Oximeter] Respiratory Rate 16 Blood Pressure 173/107 H Blood Pressure [Ri ght Arm] 151/101 H Blood Pressure [Ri ght Forearm] Pulse Oximetry 96 94 Oxygen Delivery Me thod Room Air Hospitalist - H&P: Result Labs Labs: Short CBC 11/15/23 Range/Units 03:16 WBC 9.91 (4.50-11.00) K/uL Hgb 17.8 H (13.5-17.5) gm/dL Hct 55.6 H (37.0-53.0) % Plt Count 196 (140-440) K/uL BMP 11/15/23 03:16 Sodium 138 Potassium 4.0 Chloride 104 Carbon Dioxide 27 BUN 18 Creatinine 1.5 Glucose 95 Calcium 9.4 Cardiac Enzymes 11/15/23 Range/Units 06:20 Troponin I 0.03 (0.01-0.04) ng/mL Liver Function 11/15/23 Range/Units 03:16 Total Bilirubin 1.2 (0.1-1.5) mg/dL Direct Bilirubin 0.4 (0.0-0.5) mg/dL AST 22 (12-35) U/L ALT 17 (4-50) U/L Alkaline Phosphatase 86 (40-150) U/L Albumin 4.5 (3.3-5.0) g/dL Assessment and Plan Assessment and plan (1) Chest pain: Problem comment: - noted the morning of 11/14 - ddx: ACS, CHF exacerbation, musculoskeletal, GERD - troponin increase in ED, repeat wnl - ER physician reviewed with Cardiology who recommends admission for monitoring, telemetry, serial troponins, repeat echocardiogram Status: Acute (2) Smokes cigarettes: Problem comment: - 1/2 pack per day, declines nicotine replacement on admission Status: Acute (3) Atrial fibrillation and flutter: Problem comment: - Rate controlled on metoprolol, anticoagulated on Eliquis Status: Acute (4) Anticoagulant long-term use: Status: Acute (5) Hyperlipidemia: Problem comment: - continue home dose of statin Status: Acute (6) Essential hypertension: Problem comment: - continue home medications including losartan and metoprolol Status: Acute (7) Renal transplant recipient: Problem comment: - continue tacrolimus and prednisone Status: Acute Plan - per above - home dose of Eliquis for prophylaxis - patient requests DNR/ DNI status - he did not have any family members or friends he would like me to update upon admission
[2023-11-15] MEDS: MORPHINE 2 MG/ML inj IVP (11:19)
[2023-11-15 11:47] LABS: Troponin I* 0.02 ng/mL (0.01-0.04)
[2023-11-15] MEDS: CYCLOBENZAPRINE HCL 10 MG TABLET 5 MG PO (17:08)
[2023-11-15] MEDS: MENTHOL 57 GM GEL 1 APPLIC TOPICAL ×2 (18:21→23:18)
--- NOTE | 2023-11-15 19:08 | PC.NURSE ---
End of shift [id number]: Pt arrived to the floor around 0900 via W/C from the ED. Pt is A&O x4 and afebrile. VSS with exception to elevated BP ranging from 150s-100s to 140s/90s. Pt is independent in his room with a steady gait. Denies issues with B&B. Bilateral sclera are jaundiced & reddened with no tearing. Pt has baseline discoloration to anterior BLE?s. X2 PIV?s in right FA and right AC both SL and C/D/I. Pt has ongoing c/o left upper back pain that occasionally radiates to his chest, constantly rating it at 8/10 before pain meds and 6/10 after pain meds. PRN Flexeril was initiated as well as scheduled Tylenol and [place] cream. TELE reads A. flutter with BBB rate has been 70s to 80s bpm. ECHO was done today but results are not available. Serial troponins: 0.02 > 0.02 > 1800 result still pending. ?
[2023-11-15 19:09] LABS: Troponin I* 0.02 ng/mL (0.01-0.04)
[2023-11-15] MEDS: METOPROLOL SUCCINATE (XL) 25 MG TAB PO (20:06)
[2023-11-15] MEDS: ATORVASTATIN CALCIUM 40 MG TABLET PO (20:06)
[2023-11-15] MEDS: SODIUM CHLORIDE 0.9 % (FLUSH) 10 ML SYRINGE 5 ML IVF (20:07)
[2023-11-15] MEDS: TACROLIMUS 0.5 MG CAPSULE 1 MG PO (20:07)
[2023-11-16] MEDS: CYCLOBENZAPRINE HCL 10 MG TABLET 5 MG PO (01:23)
[2023-11-16] MEDS: HYDROmorphone 0.5 mg/0.5 ml inj IVP (02:09)
[2023-11-16 02:14] VITALS: BP 150/112; PULSE 84; RESP 18; TEMP 36.5; O2SAT 97
[2023-11-16] MEDS: OXYCODONE 5 MG TABLET 10 MG PO ×2 (02:36→07:30)
--- NOTE | 2023-11-16 06:57 | PC.NURSE ---
19-: pleasant and cooperative. Rating left shoulder/midback pain 8/10, per pt - Flexeril did not aid in pain mgmt, pt reports the dilaudid was helpful with pain relief ? jingle writer educated pt on IV pain medication. Marble Setter updated MD on pain, obtained order for Oxy, offered pt longer duration of pain control, pt stated minimal pain at end of shift.
[2023-11-16 07:02] LABS: Basophils Absolute Auto 0.06 K/uL (0.00-0.30); Basophils Percent Auto 0.7 % (0.0-3.0); Eosinophils Absolute Auto 0.16 K/uL (0.00-0.50); Eosinophils Percent Auto 1.9 % (0.0-7.0); Hemoglobin* 17.3 gm/dL (13.5-17.5); Immature Granulocytes Abs Auto 0.01 K/uL (0.00-0.30); Immature Granulocytes Pct Auto 0.1 %; Lymphocytes Percent Auto 14.9 % (20-44); Mean Corpuscular HGB Conc 32 gm/dL (32-36); Mean Corpuscular Hemoglobin 27 pg (26-34); Mean Corpuscular Volume 83 fL (80-100); Monocytes Percent Auto 10.2 % (0.0-11.0); Neutrophils Percent Auto 72.2 % (42.0-72.0); Platelet Count* 166 K/uL (140-440); RDW Coefficient of Variation % 15.8 % (11.5-15.5); White Blood Count* 8.25 K/uL (4.50-11.00)
[2023-11-16 07:06] LABS: Slide Review Reflex No
[2023-11-16 07:16] VITALS: PULSE 85
[2023-11-16 07:17] LABS: Chloride* 102 mmol/L (96-114)
[2023-11-16 07:18] LABS: Albumin* 4.2 g/dL (3.3-5.0); Potassium* 4.9 mmol/L (3.6-5.1); Sodium* 136 mmol/L (135-149)
[2023-11-16 07:21] LABS: Alanine Aminotransferase* 15 U/L (4-50); Alkaline Phosphatase* 89 U/L (40-150); Anion Gap 3 mEq/L (7-15); Aspartate Amino Transferase* 22 U/L (12-35); Bilirubin Total* 1.5 mg/dL (0.1-1.5); Blood Urea Nitrogen* 16 mg/dL (5-24); Calcium* 9.2 mg/dL (8.4-10.6); Carbon Dioxide* 31 mmol/L (20-32); Creatinine* 1.4 mg/dL (0.5-1.5); Est. Creatinine Clearance* 70.83; Estimated Glomerular Filt Rate 62 ml/min; Glucose* 84 mg/dL (60-115); Total Protein* 6.8 g/dL (6.0-8.3)
[2023-11-16 07:22] LABS: Magnesium* 1.7 mg/dL (1.5-2.6)
[2023-11-16 07:32] VITALS: BP 151/101; PULSE 80; RESP 18; TEMP 36.8; O2SAT 98
[2023-11-16 07:32] LABS: Troponin I* 0.02 ng/mL (0.01-0.04)
[2023-11-16] MEDS: LOSARTAN POTASSIUM 50 MG TABLET 25 MG PO (08:39)
[2023-11-16] MEDS: FOLIC ACID 1 MG TABLET PO (08:40)
[2023-11-16] MEDS: predniSONE 5 MG TABLET 10 MG PO (08:40)
[2023-11-16] MEDS: METOPROLOL SUCCINATE (XL) 25 MG TAB PO (08:40)
[2023-11-16] MEDS: APIXABAN 5 MG TABLET PO (08:40)
[2023-11-16] MEDS: TACROLIMUS 0.5 MG CAPSULE 1.5 MG PO (08:40)
[2023-11-16] MEDS: ACETAMINOPHEN 325 MG TABLET 650 MG PO (08:40)
[2023-11-16] MEDS: LIDOCAINE 5% PATCH 1 PATCH TRANSDERMA (08:42)
[2023-11-16] MEDS: SODIUM CHLORIDE 0.9 % (FLUSH) 10 ML SYRINGE 5 ML IVF (08:44)
--- NOTE | 2023-11-16 11:19 | P.DS_ITS ---
DS: Providers Provider Date Seen: 11/16/23 Date of admission: 11/15/23 08:29 Primary care physician: Not a Local Provider Admitting Clinician: Fernanda Miller MD Consults: PT Attending Physician on discharge: Fernanda Miller MD Date of Discharge: 11/16/23 DS: Diagnosis Discharge Diagnosis (1) Chest pain: Status: Acute Problem details: - noted the morning of 11/14 - ddx: ACS, CHF exacerbation, musculoskeletal, GERD - troponin increase in ED, multiple repeat troponins negative - patient had primarily L sided shoulder pain with movement on hospital day 1, requesting discharge home - recommend close Cardiology f/u given findings on TTE Final Impressions: 1. Technically limited exam. 2. Mildly increased LV size, mildly increased wall thickness, moderately reduced global systolic function with an estimated EF of 35 - 40%. 3. Posterior wall is abnormal. 4. Right ventricular cavity size is not well visualized, global systolic RV function is not well visualized. 5. The mitral valve is sclerotic, trace mitral regurgitation. Mitral annular calcification is present. 6. Mitral stenosis with moderately increased mean gradient of 5.4 mmHg at a heart rate of 86. 7. Mildly enlarged left atrium. (2) Renal transplant recipient: Status: Acute Problem details: - continue tacrolimus and prednisone (3) Right iliac artery stenosis: Status: Chronic Problem details: - noted on imaging 11/14, likely chronic and unchanged given collateral flow - anticoagulated (4) Atrial fibrillation and flutter: Status: Acute Problem details: - atrial flutter throughout stay, unclear chronicity - Rate controlled with metoprolol, anticoagulated on Eliquis (5) Smokes cigarettes: Status: Acute Problem details: - 1/2 pack per day, declines nicotine replacement on admission (6) Essential hypertension: Status: Acute Problem details: - continue home medications including losartan and metoprolol (7) Hyperlipidemia: Status: Acute Problem details: - continue home dose of statin DS: Summary Hospital Course Hospital Course: Patient is a 48-year-old male with a past medical history of cardiac arrhythmia, CAD (status post CABG x4), renal transplant who presented to our emergency room on 11/15/2023 with chest pain. He is in [place] for work, lives in [place] (has Cardiology care, Nephrology care, and Primary Care there). In the emergency room, initial troponin was found to be elevated, repeat within normal limits and follow-up troponins during stay remained negative. His chest pain did not resolve with nitroglycerin, he was treated with IV Dilaudid and had good results with pain control. He remained in atrial flutter during stay; it is unclear how chronic this is. Noted to have decreased LV function on echocardiogram. I was able to see his recent echocardiogram from his PCP in [place], which exhibited an EF of 44% global hypokinesis with severe hypokinesis of mid distal anteroseptal distal inferoseptal min apex with grade 2 diastolic dysfunction. On hospital day 1, patient was requesting discharge home. Repeat exam revealed primarily muscular discomfort in the left shoulder and PT evaluation requested. While awaiting PT evaluation, patient did elope from the floor; after extensive searching, staff found him in his car in the parking lot, smoking a cigarette. He was amenable to coming back to the hospital to complete his therapy evaluation, and left soon after that visit with recommendations for close f/u with PCP and specialists. We also reviewed return precautions. Status at Discharge Functional status at discharge: independent ambulation Overall status at discharge: patient is back to baseline Time Spent with Patient Time attestation: Total time spent providing and/or coordinating discharge services: Time spent: Greater than 30 minutes Specific discharge activities: Medication reconciliation, patient education Exam Narrative: Exam Narrative: GEN: Alert and oriented, nontoxic HEENT: EOMIs bilaterally, no scleral icterus CV: Rate regular, no concerning murmurs R: LCTA bilaterally without concerning wheezing, air movement adequate MS: Discomfort in L scapular region with flexion/extension of L arm, no bruising/stepoffs/crepitus Skin: Chronic hyperpigmentation of BLE, unchanged from admission, c/w PVD Neuro: Nonfocal Psych: Appropriate Const: Vital Signs, click to edit/add: Vital Signs - 24 hr 11/15/23 12:00 11/15/23 13:02 11/15/23 15:00 Temperature Pulse Rate 75 Pulse Rate [Blood Pressure Cuff] 77 81 Respiratory Rate Blood Pressure [Ri ght Arm] 142/92 H 135/89 Pulse Oximetry Oxygen Delivery Me thod 11/15/23 15:00 11/15/23 15:00 11/15/23 15:00 Temperature 97.2 F L Pulse Rate Pulse Rate [Blood Pressure Cuff] 103 H 103 H Respiratory Rate 20 18 18 Blood Pressure [Ri ght Arm] 147/120 H Pulse Oximetry 97 97 Oxygen Delivery Me thod Room Air Room Air 11/15/23 20:00 11/15/23 22:42 11/15/23 23:00 Temperature 98 F Pulse Rate 77 Pulse Rate [Blood Pressure Cuff] 84 84 Respiratory Rate 18 18 Blood Pressure [Ri ght Arm] 150/93 H Pulse Oximetry 97 Oxygen Delivery Me thod Room Air 11/15/23 23:00 11/15/23 23:00 11/16/23 02:14 Temperature 98.1 F 97.7 F Pulse Rate Pulse Rate [Blood Pressure Cuff] 78 84 Respiratory Rate 18 18 18 Blood Pressure [Ri ght Arm] 154/109 H 150/112 H Pulse Oximetry 97 97 97 Oxygen Delivery Me thod Room Air Room Air Room Air 11/16/23 07:16 11/16/23 07:32 11/16/23 07:32 Temperature 98.2 F Pulse Rate 85 Pulse Rate [Blood Pressure Cuff] 80 80 Respiratory Rate 18 18 Blood Pressure [Ri ght Arm] 151/101 H Pulse Oximetry 98 Oxygen Delivery Me thod Room Air 11/16/23 07:32 Temperature Pulse Rate Pulse Rate [Blood Pressure Cuff] Respiratory Rate 18 Blood Pressure [Ri ght Arm] Pulse Oximetry 98 Oxygen Delivery Me thod Room Air DS: Data Data Completed and Pending Labs on day of discharge: Labs from last 24 hours 11/16/23 11/15/23 11/15/23 06:53 18:00 11:15 WBC 8.25 RBC 6.50 H Hgb 17.3 Hct 54.0 H MCV 83 MCH 27 MCHC 32 RDW Coeff of Rob 15.8 H Plt Count 166 Neut % (Auto) 72.2 H Lymph % (Auto) 14.9 L [place] % (Auto) 10.2 Eos % (Auto) 1.9 Baso % (Auto) 0.7 Neut # (Auto) 6.00 Lymph # (Auto) 1.20 [place] # (Auto) 0.80 Eos # (Auto) 0.16 Baso # (Auto) 0.06 Abs Immat Gran (auto) 0.01 Imm/Tot Granulo (auto) 0.1 Sodium 136 Potassium 4.9 Chloride 102 Carbon Dioxide 31 Anion Gap 3 L BUN 16 Creatinine 1.4 Estimated Creat Clear 70.83 Estimated GFR 62 Glucose 84 Calcium 9.2 Magnesium 1.7 Total Bilirubin 1.5 AST 22 ALT 15 Alkaline Phosphatase 89 Troponin I 0.02 0.02 0.02 Total Protein 6.8 Albumin 4.2 Discharge Plan Discharge Disposition: Home, Self-Care Date of Admission: 11/15/23 08:29 Attending Provider on Discharge: Fernanda Miller Primary Care Provider: Provider,Not a Local Condition: Improved Anticipated Discharge Date/Time: 11/16/23 09:38 Discharge Medications: Continued atorvastatin 40 mg tablet 40 mg PO HS prednisone 5 mg tablet 10 mg PO DAILY trazodone 100 mg tablet 100 mg PO HS PRN (Reason: insomnia) losartan 25 mg tablet 25 mg PO DAILY nitroglycerin 0.4 mg tablet, sublingual 0.4 mg sublingual Q5M PRN (Reason: angina) folic acid 1 mg tablet 1 mg PO DAILY ergocalciferol (vitamin D2) 1,250 mcg (50,000 unit) capsule 1,250 mcg PO Q7D Patient Comments: TUESDAYS tacrolimus 0.5 mg capsule 1 - 1.5 mg PO BID Patient Comments: 1.5MG AM, 1 MG PM Eliquis 5 mg tablet 5 mg PO BID metoprolol succinate 25 mg tablet extended release 24 hr 25 mg PO BID Discharge Orders: Discharge Order (Routine); Ordered 11/16/23 Ordered By: Fernanda Miller Patient Education: Heart Failure (DC), A-fib (Atrial Fibrillation) (DC), Chest Pain (DC) Additional Instructions: Do shoulder exercises per PT, Tylenol 1000mg three times/day as needed for pain. It is in your best interest to quit smoking and I strongly encourage you to take it easy for the next few days. Continue home medications, you should RETURN TO ER with any concerns of recurrent chest pain given your history. Activity Level: No strenuous activity Discharge Diet: Heart Healthy (2 gm sodium, low fat) Follow Up Appointments: Provider,Not a Local [Primary Care Provider] - (See Dr. Lim in [place] early next week) Forms: [employer] Info Instructions
--- NOTE | 2023-11-16 11:27 | PC.NURSE ---
Discharge: Patient pleasant and cooperative. Patient vitally stable, lungs clear, BS WNL, IVs removed, catheters intact. Patient independent in room. Patient rated back pain 6/10, 10mg of oxy given once and lidocaine patch applied to left/mid side of back. Patient urinating and had 1 BM. Patient did not order any food this morning while here. Tele=A.lila w/BBB. Patient signed belongings sheet and discharge form. Education was given regarding heart failure as patient reported he had not heard of heart failure. Patient left the floor by foot to home at 1114.
== END 2023-11-16 11:14 | disposition home or self-care (01) ==
LOC: ED 07:56 → MEDSURG 08:29
PROVIDERS: Admitting Provider Family Medicine; Emergency Provider Family Medicine; Visit Provider Family Medicine
DX: R07.9 Chest pain, unspecified (principal); F17.210 Nicotine dependence, cigarettes, uncomplicated; I48.91 Unspecified atrial fibrillation; I48.92 Unspecified atrial flutter; Z79.01 Long term (current) use of anticoagulants; E78.5 Hyperlipidemia, unspecified; I10 Essential (primary) hypertension; Z94.0 Kidney transplant status; I77.1 Stricture of artery
CPT/HCPCS: 36415; 71045; 71275; 74174; 80048; 80053; 80076; 83735; 83880; 84484; 85025; 93005; 93306; 94640; 96365; 96366; 96375; 96376; 97161; 99285; G0378; A9270; J1170; J1940; J2270; J7507; J7512; Q9967